=== PATIENT | female | born 1975 | race Caucasian/White ===

== ENCOUNTER 2016-02-21 13:07 | Emergency (ER) | payer OTHER ==
[~2016-02-21] VITALS: Ht 167.6 cm; Wt 54.2 kg
[~2016-02-21 13:07] MED LIST: ACET250T4 PO; AMPH5TAB16 PO; CHOL100043 PO; DICL25TA PO; FLUO10TA PO; GABA600T2 PO; MAGN27TA2 PO; MULT-1018 PO; ONDA8TAB7 PO; POTA99TA7 PO; PROP10TA8 PO
[2016-02-21 13:13] VITALS: BP 130/90; PULSE 66; RESP 16; O2SAT 100
--- NOTE | 2016-02-21 13:27 | ED.REPORT ---
HPI-General Illness Date of Service Feb 21, 2016 ED Provider: Hermann Sanabria MD Pt is a 40 year old female with a history of hyperthyroidism and hydrocephalus who presents to the ED with concerns for increased agitation, weight loss, nausea and vomiting that has been occurring for the past several weeks. Pt's significant other reports that pt has been "not herself", becoming extremely agitated and losing sleep. She reports that she has been being treated for her hyperthyroidism, and recently had her medication increased. Pt has an appointment with an senior administrative associate on 02/29/2016. After her medication was increased, her symptoms were alleviated for several months, but have recently been returning. Pt reports that she additionally has been diagnosed with endometriosis, and believes that her behavior changes are related to hormonal imbalance due to the timing of her behavioral changes. She has these episodes every month, roughly 10 days after her menstrual periods. Pt's girlfriend reports that her episodes have become so severe that she has broken furniture in outbreaks of rage, and injures herself. Pt reports no other complaints. Nursing Notes Stated Complaint: EVAL Chief Complaint: Neuro Symptoms/ Deficits Nursing Notes Reviewed: Yes Allergies: Coded Allergies: heparin (Unverified Allergy, Intermediate, Rash, 11/12/14) HIVES Scheduled Acetazolamide (Acetazolamide) 250 Mg Tablet 250 MG PO BID Amphetamine Sulfate (Evekeo) 5 Mg Tablet 5 MG PO TID Cholecalciferol (Vitamin D3) (Vitamin D) 1,000 Unit Tablet 0 PO DAILY Diclofenac ER (Diclofenac ER) 25 Mg Tablet 0 PO DAILY Fluoxetine (Fluoxetine) 10 Mg Tablet 10 MG PO TID Gabapentin (Gabapentin) 600 Mg Tablet 1,200 MG PO DAILY Multivitamin (Multi Vitamin Daily) 1 Each Tablet 1 EACH PO DAILY Potassium (Potassium) 99 Mg Tablet 99 MG PO DAILY Scheduled PRN Ondansetron ODT (Zofran ODT) 8 Mg Tablet 8 MG PO Q12 HR PRN PRN For Nausea Propranolol HCl (Propranolol HCl) 10 Mg Tablet 20 MG PO DAILY PRN PRN OOO Miscellaneous Medications Dextroamphetamine/Amphetamine (Amphetamine Mixed Salts) 20 Mg Tablet Divalproex (Divalproex) 250 Mg Tablet. Magnesium Amino Acid Chelate (Magnesium) 27 Mg Tablet 0 PO Methimazole (Methimazole) 10 Mg Tablet Zolpidem (Zolpidem) 10 Mg Tablet General Time Seen by MD: 13:24 Chief Complaint Multip medical complaints Hx Obtained From: Patient, Other family... Arrived By: Walk-in Sudden in Onset?: No Onset Occurred: Onset unknown Symptom Duration: Intermittent Location: : Head Severity: Current: Mild Severity: Maximum: Moderate Similar Sx Previous: Yes Past Medical History Past Medical History ADHD Hydrocephalus Anxiety Migraines Hyperthyroidism Endometriosis Reports: Depression Past Surgical History Hernia repair Reports: Cholecystectomy Smoking History Former Smoker Social History Drug Use: THC Ambulatory Status Independent Review of Systems Full Review of Systems Constitutional: Denies: Chills, Fever, Malaise, Weakness - generalized Respiratory: Denies: Non-productive cough, Shortness of breath, Wheezing Cardiovascular: Denies: Chest pain, Syncope GI: Reports: Nausea, Vomiting, Denies: Abdominal pain, Diarrhea Female: Denies: Dysuria, Flank pain, Urinary urgency Neurologic: Reports: Headache, Denies: Change LOC, Dizziness, Seizure, Syncope Psychiatric: Reports: Agitation, Anxiety, Change mental status, Depression Complete sys rev & neg: except as marked. Physical Exam Vital Signs Vital Signs Date Time Temp Pulse Resp B/P Pulse Ox O2 Delivery O2 Flow Rate FiO2 02/21/16 15:47 101 16 112/60 99 Room Air 02/21/16 13:13 36.9 66 16 130/90 100 Initial VS: Reviewed General/Constitutional: Well-developed, Well-nourished Head / Eyes: Atraumatic, Normocephalic, PERRL ENT: Mucous membranes moist, Conjunctiva normal, No scleral icterus Neck: Supple, Non-tender, Full range of motion Respiratory: Breath sounds normal, Clear to auscultation, No respiratory distress Cardiovascular: Regular rate & rhythm, Heart sounds normal, Intact distal pulses Abdomen / GI: Soft, Non-tender, No guarding, No rebound, No distention Skin: Warm, Dry, No cyanosis Neurologic: Alert, Oriented, Nonfocal Neurologic: Oriented X3, Speech NL, No motor deficits, No sensory deficits, Gait NL No pronator drift Able to balance with eyes closed Strength 5/5 in all 4 extremities Interpretation & Diagnostics Lab Results Interpretation Result Diagram: 02/21/16 1440 02/21/16 1440 Test 02/21/16 14:30 02/21/16 14:40 Hold Urine Received (Received) White Blood Count 6.0th/mm3 (3.8-10.1) Red Blood Count 4.42mil/mm3 (3.90-5.20) Hemoglobin 13.0g/dL (12.0-15.6) Hematocrit 39.5% (35.0-46.0) Mean Corpuscular Volume 89.4fL (81-100) Mean Corpuscular Hemoglobin 29.4pg (27.0-35.0) Mean Corpuscular Hemoglobin Concent 32.9% (32.0-37.0) Red Cell Distribution Width 14.0% (12.3-15.4) Platelet Count 339bil/L (150-400) Neutrophils (%) (Auto) 52.2% (40-74) Lymphocytes (%) (Auto) 37.9% (14-46) Monocytes (%) (Auto) 8.2% (4-12) Eosinophils (%) (Auto) 0.7% (0-5) Basophils (%) (Auto) 0.7% (0-3) Sodium Level 136mEq/L (134-144) Potassium Level 4.9mEq/L (3.5-5.2) Chloride Level 102mEq/L (97-108) Carbon Dioxide Level 23mmol/L (18-29) Blood Urea Nitrogen 7mg/dL (6-20) Creatinine 0.83mg/dL (0.57-1.00) Estimat Glomerular Filtration Rate 110mL/min (>59) Glucose Level 180mg/dL (60-99) Calcium Level 8.8mg/dL (8.5-10.1) Magnesium Level 2.0mg/dL (1.6-2.6) Total Bilirubin 0.8mg/dL (0.0-1.2) Aspartate Amino Transf (AST/SGOT) 77U/L (0-50) Alanine Aminotransferase (ALT/SGPT) 52U/L (0-32) Alkaline Phosphatase 92U/L (25-150) Total Protein 7.3g/dL (6.4-8.4) Albumin 3.6g/dL (3.4-5.0) Lipase 25U/L (13-60) Thyroid Stimulating Hormone (TSH) 0.006uIU/mL (0.450-4.500) Free Thyroxine 1.55ng/dL (0.82-1.77) CT Head Interpretation IMPRESSION: 1. Severe hydrocephalus stable compared to 11/12/14. 2. No intracranial hemorrhage. Dictated by: Mary Mai MD, PhD on 02/21/2016 at 15:40 Interpretation / Wet Read by: Interpret - Radiologist Re-Eval/Medical Decision Med Decision/Clinical Course Pt is a 40 year old female with a history of hyperthyroidism and hydrocephalus who presents to the ED with concerns for increased agitation, weight loss, nausea and vomiting that has been occurring for the past several weeks. The patient's presentation is quite bizarre and seems to involve complaints related to the patient's underlying hyperthyroidism which is currently being treated with methimazole, baseline behavioral disturbances, ongoing use of amphetamine medications despite recommendations that these medications be continued. Upon arrival the patient is afebrile and hemodynamically stable. She has no signs of head trauma and no lateralizing neurologic deficits. She has normal steady gait and no exam findings suggestive of symptomatic manifestations of her underlying hydrocephalus. I obtained a CT scan of the patient's head which demonstrated severe hydrocephalus that was stable from prior. I obtained the patient's previous extensive records from [facility] where she was initially treated with her hydrocephalus and referred the decision was made not to place a long-term indwelling [employer] shunt. From what I can gather the patient's hydrocephalus has been extensively evaluated and is felt not to require any further intervention. Based upon the CT scan today the patient's hydrocephalus is stable. Laboratory studies were notable as below: U-Tox positive for: THC, TCA and amphetamines CBC and Chemistry are unremarkable TSH is 0.006 Free T4 1.55 At this time the cause of the patient's behavioral disturbances remains unclear. She has no resting tremor or tachycardia convincing that she has clinically hyperthyroid though some of her symptoms are suggestive thereof. She has been prescribed a beta bri but has not been taking it. I certainly feel that the patient use of amphetamines may be a contributor and I have recommended that she discontinue this. The patient was seen and evaluated by emergency department pediatric social worker and it is felt that there is a large behavioral psychiatric component to her presentation today. She is without any suicidal ideation and they do not feel that she warrants admission for psychiatric perspective. The patient should continue her methimazole as she is clearly hyperthyroid though her 3 T4 is within normal limits. The patient has an upcoming appointment on the of this month with endocrinology and I recommended that she keep this appointment. At this time I feel that she is appropriate for discharge home. Arrangements were made for her to get close follow-up with her counselor. The patient and her significant other were provided with follow-up and return precautions and she was discharged in stable condition. Source of Hx: Old records Time of Eval: 16:26 Re-Evaluation/Progress Note: Pt is rechecked and informed of her labs and imaging results and the plan to discharge her at this time. She understands and agrees, all questions are addressed. Consultation : Referral / Consult Name: Daniel Araujo MD Consulted With: Hospitalist Call Returned at: 16:12 Radio Interference Supervisor: Agrees with eval, Agrees with plan Counseled Regarding: Diagnosis, Lab results, When/why to return to ED Discharge & Departure Primary Impression: Hydrocephalus Additional Impressions: Anxiety Hyperthyroidism Agitation Amphetamine abuse Behavioral disorder Disposition: Home Discharge Condition All VS Reviewed: Yes Condition: Stable Additional Instructions: Thank you for seeking care at emergency room. It is difficult for us to make definitive diagnoses in the ED but we believe that you are experiencing symptoms related to multiple factors including her hyperthyroidism as well as use of amphetamine type medications. Our primary goal today in the ED was to evaluate you for any life-threatening conditions. Your evaluation was reassuring. Please continue to take the methimazole as prescribed. We recommend discontinuing any amphetamine-containing medications. We recommend cutting back on alcohol as well. Please follow up with the resources as provided by our pediatric social worker. They will help you to get follow-up with your counselor. Please follow up with the senior administrative associate on the ninth of this month as arranged. You should return to the ED immediately if you develop worsening symptoms, thoughts of harming yourself/others, fevers, vomiting, cough, shortness of breath, chest pain, lightheadedness, weakness or any other concerning signs or symptoms. Thank you for letting us partake in your care today. Referrals: SANDI AGUILAR PA-C (PCP) Sammy Frazier MD Scribe Attestation Portions of this note were transcribed by Nicole Olmos. I, Dr. Sanabria personally performed the history, physical exam and medical decision-making; I reviewed and confirmed the accuracy of the information in the transcribed note. Signed by: Kristin Roberts, 02/21/2016 16:35 copies to: SANDI AGUILAR PA-C; Sammy Frazier MD, Beck O MD Feb 21, 2016 13:27 ALLISON OLMOS Feb 21, 2016 14:20
[2016-02-21] MEDS ORDERED: ZOLP10TA5 (14:20)
[2016-02-21] MEDS ORDERED: DEXT20TA8 (14:20)
[2016-02-21] MEDS ORDERED: METH10TA4 (14:20)
[2016-02-21] MEDS ORDERED: DIVA250T4 (14:20)
[2016-02-21 14:52] LABS: BASOPHILS % (AUTO) 0.7 % (0-3); EOSINOPHILS % (AUTO) 0.7 % (0-5); MONOCYTES % (AUTO) 8.2 % (4-12); Mean Corpuscular Hemoglobin 29.4 pg (27.0-35.0); Mean Corpuscular Volume 89.4 fL (81-100); NEUTROPHILS % (AUTO) 52.2 % (40-74); Platelet Count 339 bil/L (150-400)
--- NOTE | 2016-02-21 15:41 | DRSVH ---
PROCEDURE: CT BRAIN WITHOUT CONTRAST ([id number]) INDICATIONS: Acute mental status changes. TECHNIQUE: Noncontrast 4.5 mm thick angled axial sections acquired from the foramen magnum to the vertex, with c oronal reformats. COMPARISON: Outside Film, MR, BRAIN W/O CONTRAST, 02/18/2014, 14:39. Outside Film, CT, BRAIN W/O CO NTRAST, 02/18/2014, 14:08. [facility], CT, CT BRAIN WO CON, 11/12/2014, 16:42. FINDINGS: Image quality: Excellent. CSF spaces: Basal cisterns are patent. No extra-axial fluid collections. Severe ventriculomegaly is stable compared to prior examination obtained 11/12/2014. Brain: No midline shift. No intracranial masses or hemorrhage. Espinosa-white matter interface is norm al. Skull and face: Calvarium and visualized facial bones are intact, without suspicious lesions. Sinuses: Visualized sinuses and mastoids are clear. IMPRESSION: 1. Severe hydrocephalus stable compared to 11/12/14. 2. No intracranial hemorrhage. Dictated by: Mary Mai MD, PhD on 02/21/2016 at 15:40 Approved by: Mary Mai MD, PhD on 02/21/2016 at 15:40
[2016-02-21 15:47] VITALS: BP 112/60; PULSE 101; RESP 16; O2SAT 99
[2016-02-21 17:06] VITALS: BP 112/60; PULSE 96; RESP 16; O2SAT 99
[2016-02-23 06:08] LABS: Free Thyroxine Index 2.5 (1.2-4.9)
[2016-07-22] MEDS ORDERED: HYOS0.1216 PO (12:06)
== END 2016-02-21 17:08 | disposition home or self-care (01) ==
LOC: SED 13:07 → UNDOADMOB 16:53 → OSC 16:53
DX: G91.9 Hydrocephalus, unspecified (principal); F41.9 Anxiety disorder, unspecified; E05.90 Thyrotoxicosis, unspecified without thyrotoxic crisis or storm; R45.1 Restlessness and agitation; F15.10 Other stimulant abuse, uncomplicated; F91.9 Conduct disorder, unspecified; R63.4 Abnormal weight loss; R11.2 Nausea with vomiting, unspecified; Z87.891 Personal history of nicotine dependence; Z88.8 Allergy status to other drugs, medicaments and biological substances

== ENCOUNTER 2016-06-02 18:33 | Emergency (ER) | payer OTHER ==
[~2016-06-02] VITALS: Ht 167.6 cm; Wt 56.8 kg
[~2016-06-02 18:33] MED LIST changes: +DEXT20TA8; +DIVA250T4; +METH10TA4; +ZOLP10TA5
[2016-06-02 18:45] VITALS: BP 113/75; PULSE 78; RESP 18; O2SAT 100
[2016-06-02] MEDS ORDERED: 0.9% Sodium Chloride 1,000 ML IV ONE ×2 (20:27→21:37)
--- NOTE | 2016-06-02 20:28 | ED.REPORT ---
HPI-Abd Pain F 40 and Over Date of Service Jun 02, 2016 ED Provider: Hermann Sanabria MD Patient is a 41 year old female who presents to the ED complaining of epigastric abdominal pain onset today while doing yard work. Associated symptoms include back pain and vomiting. She denies fever, chills, or any other symptoms. She describes the pain as similar to when she had a hernia or splenic infarct. She took Maalox prior to arrival because she thought her pain was due to indigestion. Nursing Notes Stated Complaint: SEVER ABDOMINAL PAIN Chief Complaint: Female Abdominal Pain Nursing Notes Reviewed: Yes Allergies: Coded Allergies: heparin (Unverified Allergy, Intermediate, Rash, 11/12/14) HIVES Scheduled Acetazolamide (Acetazolamide) 250 Mg Tablet 250 MG PO BID Amphetamine Sulfate (Evekeo) 5 Mg Tablet 5 MG PO TID Cholecalciferol (Vitamin D3) (Vitamin D) 1,000 Unit Tablet 0 PO DAILY Diclofenac ER (Diclofenac ER) 25 Mg Tablet 0 PO DAILY Fluoxetine (Fluoxetine) 10 Mg Tablet 10 MG PO TID Gabapentin (Gabapentin) 600 Mg Tablet 1,200 MG PO DAILY Multivitamin (Multi Vitamin Daily) 1 Each Tablet 1 EACH PO DAILY Omeprazole (Omeprazole) 20 Mg Tablet. 20 MG PO DAILY Potassium (Potassium) 99 Mg Tablet 99 MG PO DAILY Scheduled PRN Ondansetron ODT (Zofran ODT) 8 Mg Tablet 8 MG PO Q12 HR PRN PRN For Nausea Ondansetron ODT (Zofran ODT) 4 Mg Tablet 4 MG PO Q4H PRN PRN For Nausea Propranolol HCl (Propranolol HCl) 10 Mg Tablet 20 MG PO DAILY PRN PRN OOO Miscellaneous Medications Dextroamphetamine/Amphetamine (Amphetamine Mixed Salts) 20 Mg Tablet Divalproex (Divalproex) 250 Mg Tablet. Magnesium Amino Acid Chelate (Magnesium) 27 Mg Tablet 0 PO Methimazole (Methimazole) 10 Mg Tablet Zolpidem (Zolpidem) 10 Mg Tablet General Time Seen by MD: 20:24 Chief Complaint Abdominal pain Hx Obtained From: Patient Sudden in Onset?: Yes Risk Factors )( AAA Risk Stratification No Hypertension, No Smoking Risk factors reviewed Past Medical History Past Medical History ADHD Hydrocephalus Anxiety Migraines Hyperthyroidism Endometriosis Reports: Depression Past Surgical History Hernia repair duodenal switch SKin graft on head Reports: Cholecystectomy Smoking History Former Smoker Social History Drug Use: THC Ambulatory Status Independent Review of Systems Constitutional: Denies: Chills, Fever GI: Reports: Abdominal pain, Vomiting Musculoskeletal: Reports: Back pain Complete sys rev & neg: except as marked. Physical Exam Vital Signs Vital Signs (First) Date Time Temp Pulse Resp B/P Pulse Ox O2 Delivery O2 Flow Rate FiO2 06/02/16 18:45 36.6 78 18 113/75 100 Room Air Initial VS: Reviewed Head / Eyes: Atraumatic, Normocephalic Skin: Warm, Dry Neurologic: Alert, Oriented, Nonfocal Psychiatric: Mood/affect normal, Behavior normal, Normal thought content General/Constitutional: Awake, Alert, Well developed Respiratory / Chest: Breath sounds NL, Breath sounds = bilat, No respiratory distress Cardiovascular: Heart rate NL, Regular rhythm, Heart sounds NL, No gallop, No murmurs, No rubs Abdomen: Soft, No guarding, No rebound, BS normoactive Tenderness/Guarding/Rebound: Positive: Tender diffuse (Mild ) Well healed surgical scar Back: Inspection NL Mouth: Positive: Mucous membranes dry Interpretation & Diagnostics Lab Results Interpretation Result Diagram: 06/02/16201906/02/16 2020 Test 06/02/16 20:20 06/02/16 20:27 06/02/16 21:05 White Blood Count 8.3th/mm3 (3.8-10.1) Red Blood Count 3.96mil/mm3 (3.90-5.20) Hemoglobin 12.0g/dL (12.0-15.6) Hematocrit 36.1% (35.0-46.0) Mean Corpuscular Volume 91.2fL (81-100) Mean Corpuscular Hemoglobin 30.3pg (27.0-35.0) Mean Corpuscular Hemoglobin Concent 33.2% (32.0-37.0) Red Cell Distribution Width 12.7% (12.3-15.4) Platelet Count 369bil/L (150-400) Neutrophils (%) (Auto) 68.6% (40-74) Lymphocytes (%) (Auto) 22.7% (14-46) Monocytes (%) (Auto) 7.9% (4-12) Eosinophils (%) (Auto) 0% (0-5) Basophils (%) (Auto) 0.4% (0-3) Sodium Level 138mEq/L (134-144) Potassium Level 4.3mEq/L (3.5-5.2) Chloride Level 103mEq/L (97-108) Carbon Dioxide Level 18mmol/L (18-29) Blood Urea Nitrogen 15mg/dL (6-24) Creatinine 0.89mg/dL (0.57-1.00) Estimat Glomerular Filtration Rate 101mL/min (>59) Glucose Level 104mg/dL (60-99) Calcium Level 9.3mg/dL (8.5-10.1) Magnesium Level 2.4mg/dL (1.6-2.6) Total Bilirubin 0.4mg/dL (0.0-1.2) Aspartate Amino Transf (AST/SGOT) 38U/L (0-50) Alanine Aminotransferase (ALT/SGPT) 23U/L (0-32) Alkaline Phosphatase 117U/L (25-150) Total Protein 7.3g/dL (6.4-8.4) Albumin 3.8g/dL (3.4-5.0) Lipase 22U/L (13-60) Human Chorionic Gonadotropin, Qual 0.500 (Negative) Urine Color Yellow (YELLOW) Urine Appearance Cloudy (CLEAR,HAZY) Urine pH 8.5 (5.0-8.0) Urine Specific Jackson 1.015 (1.003-1.035) Urine Protein Tracemg/dL (NEG,TRACE) Urine Glucose (UA) Negativemg/dL (NEGATIVE) Urine Ketones 15mg/dL (NEGATIVE) Urine Occult Blood Negative (NEGATIVE) Urine Nitrite Negative (NEGATIVE) Urine Bilirubin Negative (NEGATIVE) Urine Urobilinogen Normalmg/dL (NORMAL) Urine Leukocyte Esterase Negative (NEGATIVE) Urine RBC 0-2/hpf (0-2) Urine WBC 0-5/hpf (0-5) Urine Epithelial Cells Many/hpf (NONE-MOD) Urine Crystals Amorphous phosphates Urine Bacteria None/hpf (NONE-FEW) Urine Hyaline Casts None/lpf (NONE) Urine Granular Casts None seen (NONE SEEN) Urine Waxy Casts None seen (NONE SEEN) Urine Red Blood Cell Casts None seen (NONE SEEN) Urine White Blood Cell Casts None seen (NONE SEEN) Urine Mucus None seen (None Seen) Urine Trichomonas None seen (NONE SEEN) Urine Yeast None (NONE SEEN) Urine Culture Reflexed Not indicated Hold Purple Top Tube Received (Received) Hold Blue Top Tube Received (Received) Hold [place] Top Tube Received (Received) Hold [place] Top Tube Received (Received) Lab Results Interpretation: CBC unremarkable CMP unremarkable Urine unconvincing for UTI lipase nL limit CT Abd / Pelvis Interpretation IMPRESSION: Status post cholecystectomy and the distal common bile duct appears dilated although this may be in part due to changes related to prior cholecystectomy. Please correlate clinically and with LFTs. Elsewhere, no acute abnormality. Appendix not definitely identified. No suspicious right lower quadrant changes. Hepatic steatosis. Small hiatal hernia. Dictated by: Sg Christie M.D. on 06/02/2016 at 21:57 Approved by: Sg Christie M.D. on 06/02/2016 at 22:04 Study type: Abdominal CT IV contrast Interpretation / Wet Read by: Interpret - Radiologist Re-Eval/Medical Decision Med Decision/Clinical Course Patient is a 41 year old female who presents to the ED complaining of epigastric abdominal pain onset today while doing yard work. Associated symptoms include back pain and vomiting. She denies fever, chills, or any other symptoms. She describes the pain as similar to when she had a hernia or splenic infarct. She took Maalox prior to arrival because she thought her pain was due to indigestion. Here in the emergency department the patient is afebrile, hemodynamically stable and in no apparent distress. Her abdominal examination is relatively benign though given her extensive surgical history I opted to obtain a CT scan as below due to concern for possible anastomotic leak or small bowel obstruction. CT abdomen and pelvis: Status post cholecystectomy and the distal common bile duct appears dilated although this may be in part due to changes related to prior cholecystectomy. Please correlate clinically and with LFTs. Elsewhere, no acute abnormality. Appendix not definitely identified. No suspicious right lower quadrant changes. Hepatic steatosis. Laboratory studies were notable as below: CBC unremarkable CMP unremarkable Urine unconvincing for UTI lipase nL limit negative Here in the emergency department the patient was treated with a GI cocktail and reported complete symptom resolution. She was additionally treated with IV fluids, Zofran for nausea and hydromorphone for pain. Serial abdominal examinations remained benign without any evidence suggestive of an acute surgical intra-abdominal process. She is able to pass flatus and tolerating PO. No evidence at this time of acute surgical process or bowel obstruction. Patient's been prescribed a proton pump inhibitor and advised to take daily. She will follow up closely with her primary care physician. Prior to discharge follow-up and return precautions were reviewed in detail with the patient who verbalized understanding and agreement with the plan. The patient was discharged in stable condition. Re-Evaluation/Progress : Time of Eval: 22:20 )( Re-Eval Abdomen: Soft Re-Evaluation/Progress Note: Discussed imaging results and plan for discharge. Patient understands and agrees with plan. All questions addressed at this time. Counseled Regarding: Diagnosis, Lab results, Need for follow-up, When/why to return to ED Discharge & Departure Primary Impression: Abdominal Pain Generalized Additional Impressions: Gastritis Gastritis type: unspecified gastritis Chronicity: acute Gastritis bleeding : without bleeding Qualified Code: K29.00 - Acute gastritis without bleeding History of gastric bypass Nausea and vomiting Vomiting type: unspecified Dehydration Disposition: Home Discharge Condition All VS Reviewed: Yes Condition: Improved Additional Instructions: Thank you for seeking care at the emergency room. Our primary goal today in the ED was to evaluate you for any life-threatening conditions. Your evaluation was reassuring. I did not find any concerning causes of your abdominal pain today. You should follow-up with your primary doctor in the next week. Review of plan prescribed Zofran for nausea and omeprazole for acid reflux. You should return to the ED immediately if you develop recurrent symptoms, fevers, vomiting, cough, shortness of breath, chest pain, lightheadedness, weakness or any other concerning signs or symptoms. Thank you for letting us partake in your care today. Referrals: NOPCP (PCP) Scribe Attestation Portions of this note were transcribed by Raman Baeza. I, Dr. Sanabria personally performed the history, physical exam and medical decision-making; I reviewed and confirmed the accuracy of the information in the transcribed note. Signed by: Raman Baeza 06/02/16, 2242 Hermann Sanabria MD Jun 02, 2016 20:28 RAMAN BAEZA Jun 02, 2016 21:39
[2016-06-02] MEDS ORDERED: Ondansetron 2 mg/mL 2 mL Inj IVPUSH ONE (20:30)
[2016-06-02] MEDS ORDERED: HYDROmorphone 0.5 mg/0.5 mL iSecure Syringe IVPUSH PRN ×2 (20:30→21:40)
[2016-06-02 20:49] LABS: APPEARANCE,URINE CLOUDY (CLEAR,HAZY); COLOR,URINE YELLOW (YELLOW); OCCULT BLOOD,URINE NEGATIVE (NEGATIVE); PH,URINE 8.5 (5.0-8.0); UROBILINOGEN,URINE NORMAL (NORMAL)
[2016-06-02 21:12] LABS: BASOPHILS % (AUTO) 0.4 % (0-3); EOSINOPHILS % (AUTO) 0 % (0-5); MONOCYTES % (AUTO) 7.9 % (4-12); Mean Corpuscular Hemoglobin 30.3 pg (27.0-35.0); Mean Corpuscular Volume 91.2 fL (81-100); NEUTROPHILS % (AUTO) 68.6 % (40-74); Platelet Count 369 bil/L (150-400)
[2016-06-02 21:25] LABS: Magnesium 2.4 mg/dL (1.6-2.6)
[2016-06-02] MEDS ORDERED: LidocaineVisc 2%:Antacid 1:1 10 mL Syringe PO ONE (21:40)
--- NOTE | 2016-06-02 22:06 | DRSVH ---
PROCEDURE: CT ABDOMEN AND PELVIS WITH CONTRAST ([id number]) INDICATIONS: epigastric pain, h/o duodenal surgery TECHNIQUE: After the administration of intravenous contrast, 5 mm thick sections acquired from the diaphragm to the symphysis. 5 mm coronal and sagittal reformats were acquired. For radiation dose reduction, the following was used: automated exposure control, adjustment of mA and/or kV according to patient siz e. COMPARISON: None. FINDINGS: Image quality: Excellent. ABDOMEN: Lung bases: Lung bases are clear. Heart size is normal. Solid organs: The hepatic steatosis otherwise liver and spleen are normal in size and enhancement. G allbladder surgically absent. Extrahepatic bile ducts are dilated, and the distal common bile duct me asures approximately 1.3 cm. No visualized etiology.. Pancreas enhances normally. No adrenal nodule s. Kidneys demonstrate normal size and enhancement, without hydronephrosis. Peritoneum and bowel: Postsurgical changes involving the distal stomach however the exact anatomy is difficult to delineate. Recommend correlation to surgical history. There is a small hiatal hernia Vahe wel loops demonstrate normal wall thickness and caliber. No free fluid or air. Appendix not well-se en. Rectum grossly unremarkable Nodes and vessels: No retroperitoneal or mesenteric adenopathy by size criteria. Aorta and inferior vena cava are normal in size. Miscellaneous: No ventral hernias. PELVIS: Genitourinary: Bladder wall thickness is normal. Miscellaneous: No inguinal hernias or adenopathy. Bones: No suspicious bony lesions. No vertebral body compression fractures. IMPRESSION: Status post cholecystectomy and the distal common bile duct appears dilated although this may be in p art due to changes related to prior cholecystectomy. Please correlate clinically and with LFTs. Elsewhere, no acute abnormality. Appendix not definitely identified. No suspicious right lower quadra nt changes. Hepatic steatosis. Small hiatal hernia. Dictated by: Sg Christie M.D. on 06/02/2016 at 21:57 Approved by: Sg Christie M.D. on 06/02/2016 at 22:04
[2016-06-02] MEDS ORDERED: ONDA4TAB9 PO (22:17)
[2016-06-02] MEDS ORDERED: OMEP20TA86 PO (22:17)
[2016-06-02 22:40] VITALS: BP 107/66; PULSE 98; RESP 14; O2SAT 99
[2016-07-22] MEDS ORDERED: HYOS0.1216 PO (12:06)
== END 2016-06-02 22:42 | disposition home or self-care (01) ==
LOC: SED 18:33
DX: R10.84 Generalized abdominal pain (principal); K29.00 Acute gastritis without bleeding; E86.0 Dehydration; M54.9 Dorsalgia, unspecified; E05.90 Thyrotoxicosis, unspecified without thyrotoxic crisis or storm; F90.9 Attention-deficit hyperactivity disorder, unspecified type; Z90.49 Acquired absence of other specified parts of digestive tract; Z98.84 Bariatric surgery status; Z98.890 Other specified postprocedural states; Z87.891 Personal history of nicotine dependence
CPT/HCPCS: 74177; 80053; 81000; 81025; 83690; 83735; 84703; 85025; 96361; 96374; 96375; 99285; J1170; J2405; J7030; Q9967

== ENCOUNTER 2016-06-26 15:23 | Emergency (ER) | payer OTHER ==
[~2016-06-26 15:23] MED LIST changes: +OMEP20TA86 PO; +ONDA4TAB9 PO
[2016-07-22] MEDS ORDERED: HYOS0.1216 PO (12:06)
== END 2016-06-26 15:40 | disposition left against medical advice (07) ==
LOC: SED 15:23
DX: Z53.21 Procedure and treatment not carried out due to patient leaving prior to being seen by health care provider (principal)

== ENCOUNTER 2016-06-27 19:57 | Emergency (ER) | payer OTHER ==
[~2016-06-27] VITALS: Ht 167.6 cm; Wt 57.0 kg
[2016-06-27 20:40] VITALS: BP 108/63; PULSE 81; RESP 16; O2SAT 100
[2016-07-22] MEDS ORDERED: HYOS0.1216 PO (12:06)
== END 2016-06-27 20:45 | disposition left against medical advice (07) ==
LOC: SED 19:57
DX: R10.9 Unspecified abdominal pain (principal); Z53.21 Procedure and treatment not carried out due to patient leaving prior to being seen by health care provider

== ENCOUNTER 2016-07-22 07:04 | Emergency (ER) | payer MEDICAID, OTHER ==
[~2016-07-22] VITALS: Ht 167.6 cm; Wt 56.8 kg
[2016-07-22 07:06] VITALS: BP 157/89; PULSE 89; RESP 26; O2SAT 99
[2016-07-22] MEDS ORDERED: Pantoprazole 4 mg/mL 10 mL Inj IVPUSH ONE (07:30)
[2016-07-22] MEDS ORDERED: Ondansetron 2 mg/mL 2 mL Inj IVPUSH PRN (07:30)
--- NOTE | 2016-07-22 07:39 | ED.REPORT ---
HPI-Abd Pain F 40 and Over Date of Service Jul 22, 2016 ED Provider: Oscar Fowler DO The patient is a 41 year old female with history of hyperthyroidism, strangulated hernia s/p repair, hydrocephalus, and bariatric surgery who presents to the ED complaining of epigastric abdominal pain onset 0600am today after having breakfast. She has had [id number] episodes of abdominal pain in the last 2-3 months. The pain is at the periumbilical area, but it feels like it is in her stomach. It is sharp, like "I swallowed a razor" and radiates to bilateral flank. The pain can be very severe at times, but usually resolves spontaneously after 1-2 hours. Patient admits to back pain and nausea, but no vomiting, dysuria, urinary complaint, CP, SOB, fever, or chills. However, she feels like vomiting can make the pain better so she has been trying to induce emesis. She also reports a small loose BM this morning, but denies diarrhea, recent travel, headache, or any other complaint. She was in the ER on 06/02/16 for the same symptoms and had an abdominal CT that was normal except for a small hiatal hernia and hepatic steatosis. She was sent home with the diagnosis of gastritis. Since then, the abdominal pain has waxed and waned. She has been to the ER a couple times last month, but left while waiting in the triage as her pain subsided. No PCP. Nursing Notes Stated Complaint: ABDOMINAL PAIN Chief Complaint: Female Abdominal Pain Nursing Notes Reviewed: Yes Allergies: Coded Allergies: heparin (Unverified Allergy, Intermediate, Rash, 11/12/14) HIVES Scheduled Acetazolamide (Acetazolamide) 250 Mg Tablet 250 MG PO BID Amphetamine Sulfate (Evekeo) 5 Mg Tablet 5 MG PO TID Cholecalciferol (Vitamin D3) (Vitamin D) 1,000 Unit Tablet 0 PO DAILY Diclofenac ER (Diclofenac ER) 25 Mg Tablet 0 PO DAILY Fluoxetine (Fluoxetine) 10 Mg Tablet 10 MG PO TID Gabapentin (Gabapentin) 600 Mg Tablet 1,200 MG PO DAILY Multivitamin (Multi Vitamin Daily) 1 Each Tablet 1 EACH PO DAILY Omeprazole (Omeprazole) 20 Mg Tablet.dr 20 MG PO DAILY Potassium (Potassium) 99 Mg Tablet 99 MG PO DAILY Scheduled PRN Hyoscyamine (Hyoscyamine) 0.125 Mg Tablet 0.125 MG PO Q4H PRN PRN For GI Cramps Ondansetron ODT (Zofran ODT) 8 Mg Tablet 8 MG PO Q12 HR PRN PRN For Nausea Ondansetron ODT (Zofran ODT) 4 Mg Tablet 4 MG PO Q4H PRN PRN For Nausea Propranolol HCl (Propranolol HCl) 10 Mg Tablet 20 MG PO DAILY PRN PRN OOO Tramadol (Tramadol) 50 Mg Tablet 50 MG PO Q4H PRN PRN For Pain Miscellaneous Medications Dextroamphetamine/Amphetamine (Amphetamine Mixed Salts) 20 Mg Tablet Divalproex (Divalproex) 250 Mg Tablet. Magnesium Amino Acid Chelate (Magnesium) 27 Mg Tablet 0 PO Methimazole (Methimazole) 10 Mg Tablet Zolpidem (Zolpidem) 10 Mg Tablet General Time Seen by MD: 07:11 Chief Complaint Abdominal pain Hx Obtained From: Patient Arrived By: Walk-in Sudden in Onset?: Yes Onset Occurred: More than a week ago... (2 months) Symptom Duration: 1 - 4 hours Progression since Onset: Waxes and wanes Location: : Periumbilical Quality: Same as prior, Sharp Radiation: : Flank bilateral Severity: Current: Severe Severity: Maximum: Severe Associated with: Reports: Back pain, Nausea, Denies: Chest pain, Chills, Constipation, Dysuria, Fever, Hematuria, Shortness of breath, Urinary frequency, Urinary retention, Urinary tract symptoms, Vomiting Pertinent Negative: Pt denies other symptoms Exacerbated by: Vomiting Pertinent Negative: Relieved by nothing Recent Healthcare: Recent hospitalization Similar Sx Previous: Yes Risk Factors )( AAA Risk Stratification Smoking Risk factors reviewed Ectopic Risk Stratification No risk factors Past Medical History Past Medical History ADHD Hydrocephalus Anxiety Migraines Hyperthyroidism Endometriosis Reports: Depression Past Surgical History Hernia repair duodenal switch SKin graft on head Reports: Cholecystectomy Smoking History Current Every Day Smoker (1/2 ppd) Social History Alcohol Use: Denies alcohol use (patient denies alcohol use, but record shows that she has a history of alcoholism in the past) Drug Use: THC Ambulatory Status Independent Review of Systems Basic Review of Systems Eyes: Vision NL, No discharge ENT: Hearing NL, No pain, No nasal congestion, No pharyngeal pain Constitutional: Denies: Chills, Fatigue, Fever Respiratory: Denies: Dyspnea on exertion, Non-productive cough, Pleuritic pain , Shortness of breath Cardiovascular: Denies: Chest pain, Dyspnea on exertion, Edema, Palpitations GI: Reports: Abdominal pain, Nausea, Denies: Constipation, Diarrhea, Vomiting Female: Reports: Flank pain, Denies: Dysuria, Urinary frequency, Urinary urgency, Urination decreased Musculoskeletal: Reports: Back pain, Denies: Joint pain Complete sys rev & neg: except as marked. Physical Exam Vital Signs Vital Signs (First) Date Time Temp Pulse Resp B/P Pulse Ox O2 Delivery O2 Flow Rate FiO2 07/22/16 07:06 36.0 89 26 157/89 99 Room Air Initial VS: Reviewed Head / Eyes: Atraumatic, Normocephalic, PERRL ENT: Mucous membranes moist, Conjunctiva normal, No scleral icterus General/Constitutional: Awake, Alert, Well developed, Well hydrated Distress / Hydration: Positive: Distress severe (due to pain, moaning in pain, lying in position) Behavior: Positive: Anxious, Restless, Tearful, Uncooperative Appearance / Presentation: Positive: In pain Respiratory / Chest: Breath sounds NL, Breath sounds = bilat, No respiratory distress, No rales, No rhonchi, No wheezing Cardiovascular: Heart rate NL, Regular rhythm, Heart sounds NL, No murmurs, Cap refill not delayed Abdomen: Atraumatic, Soft, No rebound, BS normoactive, No distention, No palpable mass Tenderness/Guarding/Rebound: Positive: Guarding voluntary, Tender diffuse Pain is out of portion to exam. Back: Atraumatic, Inspection NL Flank / Spine / Paraspinal: Positive: Flank tender bilateral Skin: Atraumatic, Color NL, No rash, Warm, Dry Neck: Atraumatic, Supple, No swelling, Non-tender Ankle / Foot: Atraumatic, Inspection NL, No swelling, No erythema Psychiatric: No hallucinations Abnormal Mood/Affect: Positive: Anxious, Irritable Interpretation & Diagnostics Lab Results Interpretation Result Diagram: 07/22/16 0800 07/22/16 0800 Test 07/22/16 08:00 07/22/16 08:20 07/22/16 09:07 07/22/16 11:20 White Blood Count 5.6th/mm3 (3.8-10.1) Red Blood Count 3.45mil/mm3 (3.90-5.20) Hemoglobin 10.3g/dL (12.0-15.6) Hematocrit 32.5% (35.0-46.0) Mean Corpuscular Volume 94.2fL (81-100) Mean Corpuscular Hemoglobin 29.9pg (27.0-35.0) Mean Corpuscular Hemoglobin Concent 31.7% (32.0-37.0) Red Cell Distribution Width 13.7% (12.3-15.4) Platelet Count 301bil/L (150-400) Neutrophils (%) (Auto) 60.0% (40-74) Lymphocytes (%) (Auto) 29.6% (14-46) Monocytes (%) (Auto) 7.0% (4-12) Eosinophils (%) (Auto) 2.3% (0-5) Basophils (%) (Auto) 0.7% (0-3) Sodium Level 139mEq/L (134-144) Potassium Level 3.7mEq/L (3.5-5.2) Chloride Level 103mEq/L (97-108) Carbon Dioxide Level 20mmol/L (18-29) Blood Urea Nitrogen 11mg/dL (6-24) Creatinine 0.68mg/dL (0.57-1.00) Estimat Glomerular Filtration Rate 137mL/min (>59) Glucose Level 94mg/dL (60-99) Calcium Level 8.8mg/dL (8.5-10.1) Total Bilirubin 0.3mg/dL (0.0-1.2) Aspartate Amino Transf (AST/SGOT) 51U/L (0-50) Alanine Aminotransferase (ALT/SGPT) 28U/L (0-32) Alkaline Phosphatase 100U/L (25-150) Total Protein 6.5g/dL (6.4-8.4) Albumin 3.7g/dL (3.4-5.0) Lipase 33U/L (13-60) Thyroid Stimulating Hormone (TSH) 1.530uIU/mL (0.450-4.500) Free Thyroxine 0.81ng/dL (0.82-1.77) HCG Beta Subunit < 0.500mIU/mL Hold Purple Top Tube Received (Received) Hold Red Top Tube Received (Received) Hold [place] Top Tube Received (Received) Hold Urine Received (Received) Lactic Acid Level 1.1mmol/L (0.4-2.0) Lab Results Interpretation: Low H/H indicates Macrocytic anemia. Elevated Lactic acid (3.2) that improved with IV fluid (1). The rest of the labs were not clinically significant. CT Abd / Pelvis Interpretation IMPRESSION: 1.4 cm common duct caliber with normal tapering of the common duct to the ampulla. Prior cholecystectomy. There is a moderate degree of colonic obstipation bilaterally, as a potential source of abdominal pain. No free fluid is found, no diverticulitis is identified. Dictated by: Cam Dominguez M.D. on 07/22/2016 at 10:21 Approved by: Cam Dominguez M.D. on 07/22/2016 at 10:25 Re-Eval/Medical Decision Med Decision/Clinical Course Patient is a 41 year old female who presents to the ED complaining of nonspecific abdominal pain onset prior to arrival today. Associated symptoms include bilateral flank pain and and nausea. She denies fever, chills, or any other symptoms. She has had [id number] episodes of abdominal pain that usually self-limited in the last 2 months. Here in the emergency department the patient is and in apparent pain distress and is somewhat a vague historian, but she is otherwise afebrile, hemodynamically stable . Her abdominal examination is relatively benign though given her extensive surgical history and pain complaint, we ordered an abd/ pevis CT to rule out appendicitis vs. cholangitis vs. small bowel obstruction vs. diverticulitis vs. ovarian torsion CT abdomen and pelvis: IMPRESSION: 1.4 cm common duct caliber with normal tapering of the common duct to the ampulla. Prior cholecystectomy. There is a moderate degree of colonic obstipation bilaterally, as a potential source of abdominal pain. No free fluid is found, no diverticulitis is identified. Laboratory studies were notable as below: Low H/H indicates Macrocytic anemia. Elevated Lactic acid (3.2) that improved with IV fluid (1). Lipase normal. TSH/Free T4 normal The rest of the labs were not clinically significant. Here in the emergency department the patient was treated with a total of 1.5mg of Dilaudid IV. She was additionally treated with IV fluids and Zofran for nausea. Serial abdominal examinations remained benign without any evidence suggestive of an acute surgical intra-abdominal process. Although her CT showed a moderate degree of colonic obstipation, she is able to pass flatus and had a BM this morning. No evidence at this time of acute surgical process or bowel obstruction. In light of her dilated common duct, Dr. Parsons of general surgery was consulted and personally reviewed the CT scan. He stated that this is likely a normal finding post-cholescytectomy and there is no indication for surgery. 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 However, patient had the surgery in [place] sometime between [id number] and has no one to follow up. I recommend her to establish care with a PCP and possibly get a referral to a surgeon who is willing to see her. Patient would like to see the surgeon who did her hernia repair at [place]. Patient's been prescribed Tramadol for pain control. Because she also requested a antispasmodic medication (which she has used in the past and it seemed to help but she cant remember the name), I sent a prescription for Hyoscyamine. She will establish care with a primary care physician at [facility]. Prior to discharge follow-up and return precautions were reviewed in detail with the patient who verbalized understanding and agreement with the plan. The patient was discharged in stable condition. Re-Evaluation/Progress : Time of Eval: 09:50 )( Re-Eval Abdomen: Soft Patient Status: Condition improved Re-Evaluation/Progress Note: Patient reports improvement of pain after 0.5mg of Dilaudid x 3. She received 1L of NS so far. Will start IVF at 100mls/hr and recheck her lactic acid in an hour. Consultation : Referral / Consult Name: Timothy Parsons MD Consulted With: Surgeon Requested Call at: 10:50 Call Returned at: 10:56 Note: Request Dr. Parsons to review the abd CT, who thinks the dilated CBD is not significant for post-cholecystectomy. There is no indication for surgery, but the patient will need to follow up with her bariatric surgeon for possible post-surgical surgery. Counseled Regarding: Diagnosis, Lab results Discharge & Departure Shift Change Sign-Out Patient Care Transferred: No Discussed Complaint(s): Yes Laboratory Evaluation: Lab evaluation discussed Imaging Studies: Imaging discussed Response to Therapy: Improved Primary Impression: Abdominal Pain Generalized Additional Impression: Obstipation Disposition: Home Discharge Condition All VS Reviewed: Yes Condition: Stable Patient Instructions: Acute Abdominal Pain (ED), Bowel Management After Bariatric Surgery (DC) Additional Instructions: Your etiology of your abdominal pain is unclear at this point. Our goal in the ED today was to evaluate for any life-threatening conditions, and your evaluation was reassuring. Your abdominal CT scan did not reveal any cause of your abdominal pain other than moderate ostipation/constipation. There is also some dilatation that the common bile duct after the prior cholescystectomy. This is a common finding after the gallbladder is removed and our surgeon agreed with this. Ideally, we recommend that you follow up with the bariatric surgeon who did the duodenal switch, but since you had it done in [place], it will be challenging to follow up. However, you can return to the surgeon who performed the hernia repair to explore other options. You will need a PCP for a referral to the surgeon. Please call [facility] to make an appointment sometime next week for follow up. We also prescribed a pain medication called Tramadol that you can take as needed for the pain. Per your request for antispasmodics, we also give you a prescription for Hyoscyamine. Please take it as needed for pain as well. You declined prescription laxatives today, but you can take some over the counter laxatives and drink plenty of water. It is very important that you keep your bowel movement regular. You should return to the ED immediately if you develop recurrent symptoms, fevers, vomiting, cough, shortness of breath, chest pain, lightheadedness, weakness or any other concerning signs or symptoms. Referrals: NOPCP (PCP) [facility] Attending Statement I saw, evaluated and discussed the care of this patient with Dr. Shahram Lopez and I agree with the documentation above. copies to: [facility] Shahram Lopez DO Jul 22, 2016 07:39 Oscar Fowler DO Jul 24, 2016 06:00
[2016-07-22 08:10] LABS: BASOPHILS % (AUTO) 0.7 % (0-3); EOSINOPHILS % (AUTO) 2.3 % (0-5); Mean Corpuscular Hemoglobin 29.9 pg (27.0-35.0); Mean Corpuscular Volume 94.2 fL (81-100); Platelet Count 301 bil/L (150-400)
[2016-07-22] MEDS: HYDROmorphone 0.5 mg/0.5 mL iSecure Syringe IVPUSH PRN ×3 (08:31→09:07)
[2016-07-22] MEDS ORDERED: 0.9% Sodium Chloride 1,000 ML IV SCH (09:50)
--- NOTE | 2016-07-22 10:26 | DRSVH ---
PROCEDURE: CT ABDOMEN AND PELVIS WITH CONTRAST (PNL-7102) INDICATIONS: Diffuse abdominal pain TECHNIQUE: After the administration of intravenous contrast, 5 mm thick sections acquired from the diaphragm to the symphysis. 5 mm coronal and sagittal reformats were acquired. For radiation dose reduction, the following was used: automated exposure control, adjustment of mA and/or kV according to patient farshad mims. COMPARISON: [facility], CT, CT ABD PELVIS W CON, 06/02/2016, 21:51. FINDINGS: Image quality: Excellent. ABDOMEN: Lung bases: Lung bases are clear. Heart size is normal. Solid organs: Liver and spleen are normal in size and enhancement. Gallbladder has been previously resected. Biliary system is again seen to be dilated to the same degree previously present with a ma ximal common duct diameter of 1.4 cm. Pancreas enhances normally. No adrenal nodules. Kidneys demo nstrate normal size and enhancement, without hydronephrosis. Peritoneum and bowel: Bowel loops demonstrate normal wall thickness and caliber. No free fluid or a ir. Nodes and vessels: No retroperitoneal or mesenteric adenopathy by size criteria. Aorta and inferior vena cava are normal in size. Miscellaneous: No ventral hernias. PELVIS: Genitourinary: Bladder wall thickness is normal. Miscellaneous: No inguinal hernias or adenopathy. Bones: No suspicious bony lesions. No vertebral body compression fractures. IMPRESSION: 1.4 cm common duct caliber with normal tapering of the common duct to the ampulla. Prior cholecystectomy. There is a moderate degree of colonic obstipation bilaterally, as a potential sour ce of abdominal pain. No free fluid is found, no diverticulitis is identified. Dictated by: Cam Dominguez M.D. on 07/22/2016 at 10:21 Approved by: Cam Dominguez M.D. on 07/22/2016 at 10:25
[2016-07-22 10:42] VITALS: BP 119/80; PULSE 86; O2SAT 99
[2016-07-22] MEDS ORDERED: TRAM50TA2 PO (12:06)
[2016-07-22] MEDS ORDERED: HYOS-22 PO (12:06)
[2016-07-22 12:14] VITALS: BP 112/72; PULSE 82; RESP 16; O2SAT 100
== END 2016-07-22 12:15 | disposition home or self-care (01) ==
LOC: SED 07:04
DX: R10.84 Generalized abdominal pain (principal); K59.00 Constipation, unspecified; E05.90 Thyrotoxicosis, unspecified without thyrotoxic crisis or storm; Z98.84 Bariatric surgery status; Z98.890 Other specified postprocedural states; F17.200 Nicotine dependence, unspecified, uncomplicated; F41.9 Anxiety disorder, unspecified; F32.9 Major depressive disorder, single episode, unspecified
CPT/HCPCS: 36415; 74177; 80053; 81002; 81025; 83605; 83690; 84439; 84443; 84702; 85025; 96361; 96374; 96375; 96376; 99285; J1170; J2405; J7030; Q9967

== ENCOUNTER 2016-11-08 13:55 | Observation (INO) | payer OTHER ==
[~2016-11-08] VITALS: Ht 167.6 cm; Wt 56.8 kg
[~2016-11-08 13:55] MED LIST changes: +HYOS-22 PO; +TRAM50TA2 PO
[2016-11-08 13:57] VITALS: BP 130/84; PULSE 77; RESP 16; O2SAT 100
[2016-11-08] MEDS ORDERED: 0.9% Sodium Chloride 1,000 ML IV ONE (14:33)
[2016-11-08] MEDS ORDERED: HYDROmorphone 0.5 mg/0.5 mL iSecure Syringe IVPUSH PRN (14:35)
--- NOTE | 2016-11-08 14:41 | ED.REPORT ---
HPI-Abd Pain F Under 41 Date of Service Nov 08, 2016 ED Provider: Neal Apodaca PA-C Padmini is a 41-year-old female with a history of weight loss surgery (duodenal switch) ovarian cyst, incarcerated hernia, hydrocephalus and mesenteric venous thrombosis recently presenting with department with a chief complaint of abdominal pain. Patient complains of gradual onset periumbilical abdominal pain first noted before noon. Patient reports eating some eggrolls for lunch as she thought she might be hungry. The pain has worsened since then. Described as stabbing, though she also reports symptoms are improving at time of presentation. reports one episode of diarrhea yesterday, no blood. Patient denies melena, hematochezia, urinary symptoms, vaginal bleeding/discharge, fever , chills, vomiting. Patient states she has had many workups for similar. 2 weeks ago she was diagnosed with mesenteric venous thrombosis and hospitalized [facility]. She is transitioned to Coumadin. Last INR was Monday and was 2.8. Patient admits having one to 2 alcoholic beverages up to 3 times a week. Patient reports she has not had her period in several months. Nursing Notes Stated Complaint: SEVERE ABDOMINAL PAIN Chief Complaint: Female Abdominal Pain Nursing Notes Reviewed: Yes Allergies: Coded Allergies: heparin (Verified Allergy, Intermediate, Rash, 11/08/16) HIVES Scheduled Acetazolamide (Acetazolamide) 250 Mg Tablet 250 MG PO BID Amphetamine Sulfate (Evekeo) 5 Mg Tablet 5 MG PO TID Cholecalciferol (Vitamin D3) (Vitamin D) 1,000 Unit Tablet 0 PO DAILY Diclofenac ER (Diclofenac ER) 25 Mg Tablet 0 PO DAILY Fluoxetine (Fluoxetine) 10 Mg Tablet 10 MG PO TID Gabapentin (Gabapentin) 600 Mg Tablet 1,200 MG PO DAILY Multivitamin (Multi Vitamin Daily) 1 Each Tablet 1 EACH PO DAILY Omeprazole (Omeprazole) 20 Mg Tablet.dr 20 MG PO DAILY Potassium (Potassium) 99 Mg Tablet 99 MG PO DAILY Scheduled PRN Hyoscyamine (Hyoscyamine) 0.125 Mg Tablet 0.125 MG PO Q4H PRN PRN For GI Cramps Ondansetron ODT (Zofran ODT) 8 Mg Tablet 8 MG PO Q12 HR PRN PRN For Nausea Ondansetron ODT (Zofran ODT) 4 Mg Tablet 4 MG PO Q4H PRN PRN For Nausea Propranolol HCl (Propranolol HCl) 10 Mg Tablet 20 MG PO DAILY PRN PRN OOO Tramadol (Tramadol) 50 Mg Tablet 50 MG PO Q4H PRN PRN For Pain Miscellaneous Medications Dextroamphetamine/Amphetamine (Amphetamine Mixed Salts) 20 Mg Tablet Divalproex (Divalproex) 250 Mg Tablet. Magnesium Amino Acid Chelate (Magnesium) 27 Mg Tablet 0 PO Methimazole (Methimazole) 10 Mg Tablet Zolpidem (Zolpidem) 10 Mg Tablet General Time Seen by MD: 14:00 Chief Complaint Abdominal pain Past Medical History Past Medical History ADHD Hydrocephalus Anxiety Migraines Hyperthyroidism Endometriosis Reports: Depression Past Surgical History Hernia repair duodenal switch SKin graft on head Reports: Cholecystectomy Smoking History Current Every Day Smoker Social History Alcohol Use: Denies alcohol use Drug Use: THC Ambulatory Status Independent Review of Systems General: Denies fever, chills, malaise. Respiratory: Denies dyspnea, cough, shortness of breath, wheezing. Cardiovascular: Denies chest pain, palpitations. Gastrointestinal: Denies vomiting, diarrhea, admits abdominal pain. Genitourinary: Denies frequency, urgency, dysuria, hematuria. Denies vaginal bleeding/discharge. Menstrual period is overdue. Otherwise as noted in HPI. Physical Exam General: Well appearing, well developed, well nourished, moderate distress. Appears to be in a lot of pain. Head: Atraumatic, normocephalic. Eyes: No scleral icterus or injection. No discharge. Vision grossly intact. ENT: Voice clear, hearing grossly intact. Respiratory: Regular rate and rhythm. Breath sounds present, clear to auscultation and equal bilaterally. No respiratory distress. No increased work of breathing, speaks in complete sentences. Cardiovascular: Regular rate and rhythm, without murmur, gallop or rub. No pedal edema. Gastrointestinal: Hypoactive bowel sounds. Abdomen is flat and normal to inspection. Diffuse mild tenderness does not localize. Negative CVA tenderness. Skin: Warm and dry. Neurological: Grossly nonfocal. Psychological: Alert and oriented. Speech appropriate, linear and logical. Behavior appropriate. Initial Vital Signs Vital Signs (First) Date Time Temp Pulse Resp B/P Pulse Ox O2 Delivery O2 Flow Rate FiO2 11/08/16 13:57 36.7 77 16 130/84 100 Room Air Mildly elevated blood pressure Interpretation & Diagnostics Lab Results Interpretation Result Diagram: 11/08/16 1925 11/08/16 1440 Test 11/08/16 14:40 11/08/16 14:48 11/08/16 15:05 Sodium Level 137mEq/L (134-144) Potassium Level 3.2mEq/L (3.5-5.2) Chloride Level 101mEq/L (97-108) Carbon Dioxide Level 23mmol/L (18-29) Blood Urea Nitrogen 7mg/dL (6-24) Creatinine 0.58mg/dL (0.57-1.00) Estimat Glomerular Filtration Rate 165mL/min (>59) Glucose Level 93mg/dL (60-99) Lactic Acid Level 1.1mmol/L (0.4-2.0) Calcium Level 8.0mg/dL (8.5-10.1) Total Bilirubin 0.2mg/dL (0.0-1.2) Aspartate Amino Transf (AST/SGOT) 45U/L (0-50) Alanine Aminotransferase (ALT/SGPT) 37U/L (0-32) Alkaline Phosphatase 137U/L (25-150) Total Protein 6.4g/dL (6.4-8.4) Albumin 3.3g/dL (3.4-5.0) Lipase 12U/L (13-60) Hold Pineda Top Tube Received (Received) Prothrombin Time 27.4sec (8.1-12.5) Prothromb Time International Ratio 2.51ratio Urine Color Straw (YELLOW) Urine Appearance Hazy (CLEAR,HAZY) Urine pH 8.0 (5.0-8.0) Urine Specific [place] 1.010 (1.003-1.035) Urine Protein Negativemg/dL (NEG,TRACE) Urine Glucose (UA) Negativemg/dL (NEGATIVE) Urine Ketones Negativemg/dL (NEGATIVE) Urine Occult Blood Negative (NEGATIVE) Urine Nitrite Negative (NEGATIVE) Urine Bilirubin Negative (NEGATIVE) Urine Urobilinogen Normalmg/dL (NORMAL) Urine Leukocyte Esterase Negative (NEGATIVE) Urine RBC 0-2/hpf (0-2) Urine WBC 0-5/hpf (0-5) Urine Epithelial Cells Occasional/hpf (NONE-MOD) Urine Crystals None seen (NONE SEEN) Urine Bacteria None/hpf (NONE-FEW) Urine Hyaline Casts None/lpf (NONE) Urine Granular Casts None seen (NONE SEEN) Urine Waxy Casts None seen (NONE SEEN) Urine Red Blood Cell Casts None seen (NONE SEEN) Urine White Blood Cell Casts None seen (NONE SEEN) Urine Mucus None seen (None Seen) Urine Trichomonas None seen (NONE SEEN) Urine Yeast None (NONE SEEN) Urinalysis Comment None Urine Culture Reflexed Not indicated CT Abd / Pelvis Interpretation PROCEDURE: CT ABDOMEN AND PELVIS WITH CONTRAST ([id number]) INDICATIONS: abdominal pain IMPRESSION: 1. Small bowel obstruction possibly related to small bowel intussusception in the left upper quadrant of the abdomen. 2. Small amount of free fluid in lower pelvis. No free air identified. 3. Status post gastric bypass and cholecystectomy. 4. Intrahepatic and extrahepatic biliary dilatation as diminished in interval since prior exam obtained 07/22/16 and is likely related to prior cholecystectomy. Please correlate with laboratory data. 5. Findings discussed with Dr. Neal Apodaca on 11/08/2016 at 1659 hrs. Interpretation / Wet Read by: Discussed w radiologist Re-Eval/Medical Decision Med Decision/Clinical Course Real female with a recent history of weight loss surgery (described as a "duodenal switch" and the general surgeon's note from [facility]) and mesenteric venous thrombus presents emergency Department with chief complaint of abdominal pain since midday today. Gradually worsening to a stabbing periumbilical pain, improving at time of presentation. Long history of similar, with many workups. Diagnosed with SMA thrombus at [facility] 2 weeks ago. Physical examination reveals a diffusely tender abdomen with voluntary guarding. Negative CVA tenderness. Normal vitals. Patient appears uncomfortable but otherwise well. CBC is negative for leukocytosis and reveals a moderate anemia with a hemoglobin of 10, hematocrit of 30.8. CMP significant for mildly low potassium at 3.2, mildly low calcium at 8.0, mildly elevated ALT 37, low albumin 3.3, low lipase 12. Not thought to be clinically significant. Urinalysis is reassuring against UTI, kidney stone. is negative. INR 2.51 Discussed the case with Dr. Archer. He recommends CT imaging and CT abdomen and pelvis with contrast is ordered to assess mesenteric venous thrombus. This returned significant for small bowel obstruction possibly related to small bowel intussusception in the left upper quadrant. I discussed the case with Dr. Parsons of Gen. surgery. He feels this is unlikely to be a surgical abdomen but advises bowel rest, IV fluids. Will consult. I discussed the case with hospitalist, who accepted admission. Patient is transferred to the floor in stable condition. Re-Evaluation/Progress : Time of Eval: 15:37 Re-Evaluation/Progress Note: Patient reports pain improved though stomach still feels "sore." Consultation #1: Referral / Consult Name: Timothy Parsons MD Consulted With: Surgeon Note: Discussed the case, Dr. Parsons doubts this is a surgical condition, recommend nothing by mouth, IV fluids, pain control. Will consult in hospital. Consultation #2: Referral / Consult Name: PITER SYED DO Consulted With: Hospitalist Call Returned at: 17:56 Glaucoma Specialist: Accepts admit Discharge & Departure Primary Impression: Small bowel obstruction Disposition: ADMITTED TO HOSPITAL Referrals: NOPCP (PCP) EDSupervising Provider for APC: Bertin Bobby Seth PA-C Nov 08, 2016 14:41 Re-Eval/Medical Decision Med Decision/Clinical Course Real female with a recent history of weight loss surgery (described as a "duodenal switch" and the general surgeon's note from [facility]) and mesenteric venous thrombus presents emergency Department with chief complaint of abdominal pain since midday today. Gradually worsening to a stabbing periumbilical pain, improving at time of presentation. Long history of similar, with many workups. Diagnosed with SMA thrombus at [facility] 2 weeks ago. Physical examination reveals a diffusely tender abdomen with voluntary guarding. Negative CVA tenderness. Normal vitals. Patient appears uncomfortable but otherwise well. CBC is negative for leukocytosis and reveals a moderate anemia with a hemoglobin of 10, hematocrit of 30.8. CMP significant for mildly low potassium at 3.2, mildly low calcium at 8.0, mildly elevated ALT 37, low albumin 3.3, low lipase 12. Not thought to be clinically significant. Urinalysis is reassuring against UTI, kidney stone. INR 2.51 Discussed the case with Dr. Archer. He recommends CT imaging and CT abdomen and pelvis with contrast is ordered to assess mesenteric venous thrombus. This returned significant for small bowel obstruction possibly related to small bowel intussusception in the left upper quadrant. I discussed the case with Dr. Parsons of Gen. surgery. He feels this is unlikely to be a surgical abdomen but advises bowel rest, IV fluids. Will consult. Requested admission. Re-Evaluation/Progress : Time of Eval: 15:37 Re-Evaluation/Progress Note: Patient reports pain improved though stomach still feels "sore." Consultation #1: Referral / Consult Name: Timothy Parsons MD Consulted With: Surgeon Note: Discussed the case, Dr. Parsons doubts this is a surgical condition, recommend nothing by mouth, IV fluids, pain control. Will consult in hospital. Consultation #2: Referral / Consult Name: PITER SYED DO Consulted With: Hospitalist Call Returned at: 17:56 Glaucoma Specialist: Accepts admit Discharge & Departure Referrals: NOPCP (PCP) Neal Apodaca PA-C Nov 08, 2016 14:41
[2016-11-08 14:51] LABS: BASOPHILS % (AUTO) 0.3 % (0-3); EOSINOPHILS % (AUTO) 0 % (0-5); MONOCYTES % (AUTO) 8.2 % (4-12); Mean Corpuscular Hemoglobin 29.4 pg (27.0-35.0); Mean Corpuscular Volume 90.6 fL (81-100); Platelet Count 263 bil/L (150-400)
[2016-11-08 15:04] LABS: INR 2.51 ratio
[2016-11-08 15:25] LABS: APPEARANCE,URINE HAZY (CLEAR,HAZY); COLOR,URINE STRAW (YELLOW); OCCULT BLOOD,URINE NEGATIVE (NEGATIVE); UROBILINOGEN,URINE NORMAL (NORMAL)
[2016-11-08] MEDS ORDERED: Famotidine 10 mg/mL 2 mL Inj IVPUSH ONE (15:45)
[2016-11-08] MEDS ORDERED: Famotidine Inj 20 MG in IV Premix 1 EACH IV ONE (15:55)
--- NOTE | 2016-11-08 17:08 | DRSVH ---
PROCEDURE: CT ABDOMEN AND PELVIS WITH CONTRAST ([id number]) INDICATIONS: abdominal pain TECHNIQUE: After the administration of intravenous contrast, 5 mm thick sections acquired from the diaphragm to the symphysis. 5 mm coronal and sagittal reformats were acquired. For radiation dose reduction, the following was used: automated exposure control, adjustment of mA and/or kV according to patient farshad mims. COMPARISON: [facility], CT, CT ABD PELVIS W CON, 07/22/2016, 9:45. FINDINGS: Image quality: Excellent. ABDOMEN: Lung bases: Lung bases are clear. Heart size is normal. Solid organs: Liver and spleen are normal in size and enhancement. Gallbladder is surgically absent . The intrahepatic extrahepatic biliary ducts are dilated, but decreased in diameter compared to with the common bile duct measuring 1.1 cm in diameter. Pancreas enhances normally. No adrenal no dules. Kidneys demonstrate normal size and enhancement, without hydronephrosis. Peritoneum and bowel: Postsurgical changes compatible prior gastric bypass are noted. There are multi ple dilated loops of proximal small bowel. Loops of small bowel are dilated up to 4.2 cm in diameter. There is a intussusception involving loops of small bowel in the left upper quadrant (series 2, imag es 24-31; series 4, images 10-16). Small amount of free fluid noted in the lower pelvis. No free air is identified. Gas and stool are noted in the colon. Nodes and vessels: No retroperitoneal or mesenteric adenopathy by size criteria. Aorta and inferior vena cava are normal in size. Portal venous system enhances normally. Miscellaneous: No ventral hernias. PELVIS: Genitourinary: Bladder wall thickness is normal. Miscellaneous: No inguinal hernias or adenopathy. Bones: No suspicious bony lesions. No vertebral body compression fractures. Spine degenerative disc disease and facet arthropathy. IMPRESSION: 1. Small bowel obstruction possibly related to small bowel intussusception in the left upper quadrant of the abdomen. 2. Small amount of free fluid in lower pelvis. No free air identified. 3. Status post gastric bypass and cholecystectomy. 4. Intrahepatic and extrahepatic biliary dilatation as diminished in interval since prior exam obtain ed 07/22/16 and is likely related to prior cholecystectomy. Please correlate with laboratory data. 5. Findings discussed with Dr. Neal Apodaca on 11/08/2016 at 1659 hrs. Dictated by: Mary Mai MD, PhD on 11/08/2016 at 15:54 Approved by: Mary Mai MD, PhD on 11/08/2016 at 16:06
[2016-11-08] MEDS ORDERED: Polyethylene Glycol (PEG) 17 Gm Powder PO PRN (17:50)
[2016-11-08] MEDS: HYDROmorphone 0.5 mg/0.5 mL iSecure Syringe IVPUSH PRN ×5 (17:50→22:00)
[2016-11-08 18:17] VITALS: BP 120/80; PULSE 61; RESP 16; O2SAT 100
--- NOTE | 2016-11-08 18:40 | NUR ---
Admit Pt comes to floor on gurney from ER. Pt grimacing in pain with tears in eyes. Pt stood to transfer to bed. MD in room. A&OX4. Report received then transferred to oncoming nurse. Care continues
[2016-11-08 18:51] VITALS: BP 110/78; PULSE 64; RESP 18; O2SAT 100
[2016-11-08] MEDS ORDERED: KCl 40 mEq/D5W 500 mL 40 MEQ in IV Premix 500 EACH IV ONE (19:10)
[2016-11-08] MEDS ORDERED: KCl 40 mEq/D5W 500 mL 40 MEQ in IV Premix 1 EACH IV ONE (19:19)
[2016-11-08 19:34] LABS: BASOPHILS % (AUTO) 0.6 % (0-3); EOSINOPHILS % (AUTO) 0 % (0-5); Mean Corpuscular Hemoglobin 29.2 pg (27.0-35.0); Platelet Count 269 bil/L (150-400)
--- NOTE | 2016-11-08 19:38 | PCM.HPMED ---
Subjective Date of Service Nov 08, 2016 Primary Provider: Admitting Physician: Primary Care Physician: Luz Attending Physician: Admit Status: From the Emergency Department, Full Admit Chief Complaint: Midabdominal pain. . History of Present Illness: Padmini Coates is a 41-year-old female with a past medical history significant for hydrocephalus status post temporary shunt and skull flap, depression, anxiety, ADD, hyperthyroidism,weight loss surgery in [place] called a "duodenal switch", incarcerated hernia, and recent mesenteric venous thrombosis on warfarin who presented to [facility] emergency Department with mid abdominal pain since 12:00 this afternoon. She describes the pain a dull ache with intermittent sharpness. The abdominal pain is intermittent and comes in waves. She rates the pain a +8 out of 10 in severity at its worst. She has had associated nausea, right back pain, and headache. She reports that if she tries to make herself vomit she gets mild relief despite not actually vomiting. She denies chest pain, sore throat, cough, fever , chills, dysuria, or constipation. She reports she had a small episode of diarrhea this morning. She reports that she normally has a bowel movement daily. She denies hematochezia or melena. Vital signs in the ER: Temperature 36.7. Pulse 77. Respiratory rate 16. Blood pressure 130/84. Pulse ox 100% room air. She received hydromorphone IV 0.5 mg 2, famotidine IV 20 mg 1, calcium carbonate 500 mg 1, acetaminophen 975 mg 1, and 1 L of NS. PCP is Sandi Aguilar PA-C. . Review of Systems: A comprehensive review of systems was conducted with the patient and found to be negative except as above in the History of Present Illness. . Allergies Coded Allergies: heparin (Verified Allergy, Intermediate, Rash, 11/08/16) HIVES Home Medications Acetazolamide 250 mg twice a day. Amphetamine sulfate 5 mg twice daily. Fluoxetine 10 mg 3 times a day. Gabapentin 600 mg twice daily. Methimazole 10 mg every morning and 5 mg every afternoon. Multivitamin 1 daily. Omeprazole 20 mg daily as needed. Potassium 99 99mg daily. Vitamin D3 1000 IU daily. Warfarin 5 mg daily. Zolpidem 10 mg daily at bedtime as needed for insomnia. . PMH 1. Ductal stenosis with hydrocephalus status post temporary shunt and skull flap. 2. Splenic infarct. 3. Depression. 4. Anxiety. 5. ADD. 6. Hyperthyroidism. 7. Mesenteric venous thrombosis on warfarin. 8. Insomnia. 9. GERD. 10. Migraine headaches. . Surgical History 1. Strangulated hernia repair. 2. Temporary shunt and skull flap for hydrocephalus. 3. Cholecystectomy. 4. Duodenal switch. . Family History Mother with hypothyroidism. Father with diet-controlled diabetes mellitus type II. Sister who is healthy. . Social History Hx Alcohol Use: Yes (2 mixed vodka drinks 3x/week) Hx Substance Use: Yes (THC) Smoking Status: Current Every Day Smoker (1 PPD x 10 years) Additional Information The patient is single. She has no children. 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 Exam Vital Signs Vital Sign - Last Date Time Temp Pulse Resp B/P Pulse Ox O2 Delivery O2 Flow Rate FiO2 11/08/16 13:57 36.7 77 16 130/84 100 Room Air Exam General: Young female lying in bed, appears uncomfortable, in no acute distress , well-developed, well-nourished, appropriately interactive. HEENT: Normocephalic, atraumatic. External ears without defect. Pupils equal, round, and reactive to light. Anicteric sclerae, moist conjunctivae, and no lid lag. Oropharynx free of erythema and cobble stoning with moist mucosa. Neck: Supple with full range of motion. No jugular venous distension. No bruits. No lymphadenopathy or thyromegaly. Cardiovascular: Regular rate and rhythm without murmurs, rubs, or gallops appreciated Pulmonary: Clear to auscultation bilaterally without crackles, wheezes, or rhonchi. Normal respiratory effort with no use of accessory muscles. Abdomen: Soft, mild tenderness to palpation in mid abdomen, nondistended, bowel sounds present. No hepatosplenomegaly or masses appreciated. Extremities: No clubbing, cyanosis, or edema. Several upper extremity lesions reportedly from bee stings. Skin: Normal temperature, turgor, and texture; no rash, ulcers, or subcutaneous nodules appreciated. Neurological: Cranial nerves grossly intact. Normal muscle strength, tone, and bulk. Reflexes, coordination, and sensory function within normal limits. No known gait impairment. Psychiatric: Normal mood and affect. Alert and oriented to person, place, and time. . Lab and Diagnostics Labs Item Value Date Time Lactic Acid Level 1.1 mmol/L 11/08/16 1440 Item Value Date Time Total Bilirubin 0.2 mg/dL 11/08/16 1440 Calcium Level 8.0 mg/dL L 11/08/16 1440 Aspartate Amino Transf (AST/SGOT) 45 U/L 11/08/16 1440 Alanine Aminotransferase (ALT/SGPT) 37 U/L H 11/08/16 1440 Alkaline Phosphatase 137 U/L 11/08/16 1440 Total Protein 6.4 g/dL 11/08/16 1440 Albumin 3.3 g/dL L 11/08/16 1440 Lipase 12 U/L L 11/08/16 1440 Item Value Date Time Prothrombin Time 27.4 sec H 11/08/16 1448 Prothromb Time International Ratio 2.51 ratio 11/08/16 1448 Result Diagram: 11/08/16 1440 11/08/16 1440 X-Rays, CTs and MRIs CT ABDOMEN AND PELVIS WITH CONTRAST niya disc disease and facet arthropathy. IMPRESSION: 1. Small bowel obstruction possibly related to small bowel intussusception in the left upper quadrant of the abdomen. 2. Small amount of free fluid in lower pelvis. No free air identified. 3. Status post gastric bypass and cholecystectomy. 4. Intrahepatic and extrahepatic biliary dilatation as diminished in interval since prior exam obtained 07/22/16 and is likely related to prior cholecystectomy. Please correlate with laboratory data. 5. Findings discussed with Dr. Neal Apodaca on 11/08/2016 at 1659 hrs. Dictated by: Mary Mai MD, PhD on 11/08/2016 at 15:54 . Assessment & Plan Padmini Coates is a 41-year-old female with a past medical history significant for hydrocephalus status post temporary shunt and skull flap, depression, anxiety, ADD, hyperthyroidism,weight loss surgery in [place] called a "duodenal switch", incarcerated hernia, and recent mesenteric venous thrombosis on warfarin who presented to [facility] emergency Department with mid abdominal pain since 12:00 this afternoon. 1. Acute small bowel obstruction, present on admission. Active. - Patient presented with mid abdominal pain, nausea, right-sided back pain, and diarrhea. - Patient has a history of several abdominal surgeries including cholecystectomy , stringy related hernia repair, and duodenal switch which puts the patient at high risk for adhesions and small bowel obstruction. - CT abdomen and pelvis with contrast demonstrated small bowel obstruction possibly related to small bowel intussusception in the left upper quadrant of the abdomen, as above. - Continue NS at 100 mL/hr. - Ordered acetaminophen 975 mg every 6 hours as needed for mild to moderate pain and hydromorphone 0.5 mg every 2 hours as needed for severe pain. Will try to be conservative with narcotics. - Encouraged the patient to be up ambulating when she is not in pain. - Dr. Parsons of general surgery was consulted and recommends bowel rest including: nothing by mouth, IV fluid hydration, and ambulation. Chronic problems: 2. Mesenteric venous thrombosis, present on admission. Presumed stable. - INR 2.51 therapeutic on warfarin. - Continue warfarin with dosing per pharmacist. If surgery is required will need to reverse with FFP and vitamin K. 3. Ductal stenosis with hydrocephalus status post temporary shunt and skull flap, present on admission. Stable. - Continue acetazolamide 250 mg twice daily. 4. Depression and anxiety, present on admission. Stable. - Continue fluoxetine 10 mg 3 times a day. 5. Attention deficit disorder, present on admission. Stable. - Continue amphetamine sulfate 5 mg twice daily. 6. Hyperthyroidism, present on admission. Stable. - Continue methimazole 10 mg every morning and 5 mg every afternoon. 7. Migraine headaches, not present on admission. Stable. - Continue gabapentin 600 mg twice a day. PRN antiemetics: Zofran and Maalox. PRN bowel regimen: Senna and MiraLAX. PRN analgesics: Tylenol. Patient is admitted under inpatient status with expected length of stay greater than 2 midnights due to severity of presenting symptoms, risk of adverse event, and complexity of treatment plan. . VTE Prophylaxis: Theraputic Anticoag with Warfarin Resuscitation Status: CPR: Attempt Resuscitation Attending Statement The patient was seen and examined together with house staff on 11/08/2016 and I agree with the history, exam and plan as outlined in the note above. copies to: SANDI AGUILAR PA-C, [place] M DO Nov 08, 2016 17:55 Anna Rincon DO Nov 09, 2016 04:53
[2016-11-08] MEDS: 0.9% Sodium Chloride 1,000 ML IV SCH (19:54)
--- NOTE | 2016-11-08 20:11 | CONS ---
[address] [address] CONSULTATION REPORT PATIENT: SAMAN TORRES : 1975 MR#: [id number] ADMIT: 11/08/2016 JOB ID: [id number] DATE OF SERVICE: 11/08/2016 CHIEF COMPLAINT: Abdominal pain. HISTORY OF PRESENT ILLNESS: I am asked by Neal Apodaca PA-C, in emergency department to evaluate the patient for abdominal pain. She has had multiple workups in multiple institutions over the past several months for abdominal pain. Her abdominal history is quite complicated in that she underwent a duodenal switch for weight loss in [place] in 2009. Following that, she had incisional hernia that has been repaired as well. She does not know if her hernia repair took place with mesh or not. She has also undergone cholecystectomy. She presented to the emergency department today after she had "not been feeling well" for most of the day. She had pain mainly in the right upper quadrant of her abdomen. She has not had any fevers or chills. She denies vomiting although she states for several years she has had the urge to vomit, and states that her chronic abdominal pain is partially alleviated by vomiting. Her last bowel movement was this morning which was a small loose stool without blood. She has passed some flatus but not very much. Two weeks ago, she was diagnosed with mesenteric venous thrombosis and hospitalized at [facility]. She was started on anticoagulation and has been transitioned to Coumadin, which she has continued to take regularly. PAST MEDICAL HISTORY: ADHD, hydrocephalus, anxiety, migraine headaches, hyperthyroidism, endometriosis, depression. PAST SURGICAL HISTORY: Duodenal switch, hernia repair, cholecystectomy, skin graft. MEDICATIONS AT HOME: Include acetazolamide, amphetamine, vitamin D3, diclofenac, fluoxetine, gabapentin, multivitamin, omeprazole, potassium, hyoscyamine, Zofran, propranolol, tramadol, warfarin. ALLERGIES: To HEPARIN which causes hives. SOCIAL HISTORY: She smokes cigarettes and admits to marijuana use, denies alcohol use. FAMILY HISTORY: Noncontributory, no family history of GI malignancy. REVIEW OF SYSTEMS: A 10-point review of systems is negative except as described in history of present illness. Specifically denies unplanned weight loss. PHYSICAL EXAM: Body mass index 20.2, temperature 36.6, pulse 64, blood pressure 110/78, saturation 100% on room air. General: She is resting in bed in no acute distress. HEENT: Sclerae are anicteric. Mucous membranes are moist. Neck: No lymphadenopathy. Chest is clear. Heart: Regular rate and rhythm. No murmurs. Abdomen is nondistended, slightly firm, mild tenderness to palpation throughout all quadrants. Bowel tones are present. She has several scars on the abdomen, but states that those are from skin laceration and not surgical scars. Extremities: No edema. Neuro: No deficits. Psych: Affect is appropriate. LABORATORIES: White count is 6.0, hematocrit 30.8, platelets 263. Differential is normal. Creatinine 0.58, glucose 93, lactate 1.1, lipase 12. Albumin 3.3. INR 2.51. IMAGING: CT scan of the abdomen and pelvis shows multiple dilated loops of small bowel. There is intussusception involving loops of small bowel in the left upper quadrant of the abdomen. There are surgical changes of prior gastric bypass and cholecystectomy. There is a small amount of free fluid in the lower pelvis. No venous thrombosis is described. There is no free air. ASSESSMENT AND PLAN: A 41-year-old woman with a complex abdominal surgical history including an operation which is not routinely done in the [place] because of malnutrition and postoperative issues, which is the duodenal switch, admitted with abdominal pain and intussusception on CT scan. I wonder if intussusception is really a clinically relevant entity for her or not. Sometimes intussusception is an incidental finding on CT scan. There are no significant inflammatory changes noted on the CT scan of the intussuscepted segment, and in a woman with very recently diagnosed mesenteric venous thrombosis, she has a reason to potentially have a lead point causing intussusception. I recommend conservative treatment, including n.p.o., IV fluids, bowel rest. It is possible that if she does not improve, she will require surgical intervention. In the big picture, I strongly recommended that she establish care with a bariatric surgeon. She needs to have a bariatric surgeon manage her nutritional issues following the operation that she has had in the past, because they are significant. She also needs to have an established bariatric surgeon to help tackle the expected postoperative issues that she will continue to have in life because of her prior operation.
--- NOTE | 2016-11-08 20:26 | PCM.CONPHA ---
Subjective Epigastric abdominal pain. . Reason for Pharmacy Consult: Anticoagulation Management Assessment/Plan Assessment/Plan Warfarin Management by Pharmacy Indication: mesenteric venous thrombosis Home Dose: 5 mg daily (confirmed with pt) INR Goal: 2-3 Duration: TBD INR: 2.51 Assessment/Plan -Therapeutic INR. Dose not taken prior to admit. -Will continue warfarin 5 mg this evening. Pharmacy to monitor. Elli Miner Dwaine Pharm.D. Fran Calloway Nov 08, 2016 20:26
[2016-11-08] MEDS ORDERED: WARF5TAB PO (21:34)
[2016-11-08 22:12] VITALS: PULSE 62
--- NOTE | 2016-11-08 22:24 | NUR ---
Pain Pt c/o pain 10 out of 10 to RUQ abdomen. Observed pt to be extremely restless, "I can't find a comfortably position", tearful and grimacing also observed. 0.5mg IV Dilaudid given at 2007, 2111, & 2199 -per pt no relief. "The second dose (Dilaudid) helped a little but not for very long." Night hospitalist notified, no new orders at this time. VSS, bowel tones present, very hypoactive. Pt states last ate at lunch time and could not keep it down. Pt remains NPO, ice chips okay per Dr. De La Torre. Addendum: 11/08/16 at 2235 by TRE MAGALLANES RN Per night hospitalist, admin 1mg IV Dilaudid now and is ordering repeat labs stat. Also, per pt no c/o N/V at this time. Per Dr. De La Torre and night hospitalist, ok to admin coumadin 5mg. Addendum: 11/09/16 at 0511 by TRE MAGALLANES RN Pt very tearful, restless, anxious. Requested Ativan IV from night hospitalist, no new orders at this time. Addendum: 11/09/16 at 0514 by TRE MAGALLANES RN New order for IV Ativan 0.5mg per night hospitalist.
[2016-11-08] MEDS ORDERED: HYDROmorphone 1 mg/mL Inj IVPUSH ONE (22:30)
[2016-11-08 23:01] LABS: BASOPHILS % (AUTO) 0.4 % (0-3); EOSINOPHILS % (AUTO) 0 % (0-5); Mean Corpuscular Hemoglobin 29.3 pg (27.0-35.0); Mean Corpuscular Volume 90.3 fL (81-100); NEUTROPHILS % (AUTO) 64.2 % (40-74); Platelet Count 273 bil/L (150-400)
[2016-11-09] VITALS (7 sets, daily range): BP systolic 116–142; BP diastolic 70–92; PULSE 65–105; RESP 17–22; O2SAT 92–100
[2016-11-09] MEDS: HYDROmorphone 0.5 mg/0.5 mL iSecure Syringe IVPUSH PRN ×5 (01:14→09:12)
[2016-11-09] MEDS: Alum-Mag Hydrox-Simeth 30 mL Suspension PO PRN ×2 (01:55→12:46)
--- NOTE | 2016-11-09 03:02 | NUR ---
NG NG ordered by night hospitalist. Attempted insertion X3 with premed IV Dilaudid and IV Ativan. Unable to place NG, pt very tense and hard for her to relax enough to advance tubing. Pain/anxiety appears to be less than start of shift. C/o pain to RUQ of 5 out of 10. Will pass to day shift NG order, and unsuccessful. Addendum: 11/09/16 at 0310 by TRE MAGALLANES RN Night hospitalist notified of unsuccessful NG placement. No N/V. Pain levels decreased to 5 out of 10 and mostly to right lower back. Encouraging pt to ambulate room/hallway.
[2016-11-09] MEDS: 0.9% Sodium Chloride 1,000 ML IV SCH ×2 (03:49→13:19)
[2016-11-09] MEDS: Ondansetron 2 mg/mL 2 mL Inj IVPUSH PRN ×3 (04:57→14:54)
--- NOTE | 2016-11-09 07:23 | PROG NOTE ---
[address] [address] PROGRESS NOTE PATIENT: SAMAN TORRES : 1975 MR#: [id number] ADMIT: 11/08/2016 JOB ID: [id number] DATE: 11/09/2016 SUBJECTIVE: The patient is seen in followup. She feels somewhat better this morning. Last night, attempts were made to place a nasogastric tube, which were unsuccessful. She is not passing flatus. She describes her pain as being located in the epigastrium and radiating across the right upper abdomen to her right flank. OBJECTIVE: Temperature 36.8, pulse 68, blood pressure 142/91, saturation 98% on room air. General: She is resting in bed, mildly sedated, in no acute distress. Chest is clear. Heart: Regular rate and rhythm. No murmurs. Abdomen is nondistended, soft. Bowel tones are fairly normal. She is mildly tender in the right upper abdomen. LABORATORIES: White count is 8.3, hematocrit 31.8, platelets 273. Differential is normal. Creatinine 0.57, lactate 0.6, total bilirubin 0.7, AST 415, ALT 104, alkaline phosphatase 280, albumin 3.2. ASSESSMENT AND PLAN: A 41-year-old woman with abdominal pain, small bowel intussusception on CT, new elevated liver function tests. Based on the nature of her pain, location, and now markedly abnormal liver function tests, I think that deserves evaluation with additional imaging today. I would recommend either abdominal ultrasound versus MRCP, since her bile duct has looked abnormal on previous imaging studies. Recommend continuing to keep her n.p.o. with IV fluids. I will discuss plans for additional imaging with the Hospitalists service.
[2016-11-09] MEDS ORDERED: Pantoprazole 40 mg ER24 Tablet PO SCH (07:30)
[2016-11-09 07:48] LABS: INR 4.33 ratio
[2016-11-09] MEDS ORDERED: Amphetamines (Mixed) 10 mg Tablet PO SCH (08:30)
--- NOTE | 2016-11-09 09:32 | PCM.PNMED ---
Subjective Date of Service Nov 09, 2016 Subjective Patient seen and examined. In pain. Vitals noted. Exam Vital Signs Vital Sign - Last Date Time Temp Pulse Resp B/P Pulse Ox O2 Delivery O2 Flow Rate FiO2 11/09/16 09:12 68 11/09/16 07:58 36.4 22 121/79 98 Room Air Intake and Output 11/08/16 11/08/16 11/09/16 Cumulative From/Thru 15:00 23:00 07:00 11/08/16 13:57 - 11/09/16 05:52 Intake Total 1000 ml 767 ml 1767 ml Output Total 850 ml 850 ml Balance 1000 ml -83 ml 917 ml Intake Oral 50 ml 50 ml IV Total 1000 ml 717 ml 1717 ml Output Urine Total 850 ml 850 ml # Bowel Movements 0 0 Exam General: Young female lying in bed, appears uncomfortable Neck: Supple with full range of motion. No jugular venous distension. No bruits. No lymphadenopathy or thyromegaly. Cardiovascular: Regular rate and rhythm without murmurs, rubs, or gallops appreciated Pulmonary: Clear to auscultation bilaterally without crackles, wheezes, or rhonchi. Normal respiratory effort with no use of accessory muscles. Abdomen: Soft. Tender to palpation. Hyperactive BS. Extremities: No clubbing, cyanosis, or edema. Several upper extremity lesions reportedly from bee stings. . Lab and Diagnostics Result Diagram: 11/08/16225311/08/162253 X-Rays, CTs and MRIs CT ABDOMEN AND PELVIS WITH CONTRAST niya disc disease and facet arthropathy. IMPRESSION: 1. Small bowel obstruction possibly related to small bowel intussusception in the left upper quadrant of the abdomen. 2. Small amount of free fluid in lower pelvis. No free air identified. 3. Status post gastric bypass and cholecystectomy. 4. Intrahepatic and extrahepatic biliary dilatation as diminished in interval since prior exam obtained 07/22/16 and is likely related to prior cholecystectomy. Please correlate with laboratory data. 5. Findings discussed with Dr. Neal Apodaca on 11/08/2016 at 1659 hrs. Dictated by: Mary Mai MD, PhD on 11/08/2016 at 15:54 . Assessment & Plan Padmini Coates is a 41-year-old female with a past medical history significant for hydrocephalus status post temporary shunt and skull flap, depression, anxiety, ADD, hyperthyroidism,weight loss surgery in [place] called a "duodenal switch", incarcerated hernia, and recent mesenteric venous thrombosis on warfarin who presented to [facility] emergency Department with mid abdominal pain since 12:00 this afternoon. #. Acute small bowel obstruction with intussusception , present on admission. Active. - Patient presented with mid abdominal pain, nausea, right-sided back pain, and diarrhea. - Patient has a history of several abdominal surgeries including cholecystectomy , stringy related hernia repair, and duodenal switch which puts the patient at high risk for adhesions and small bowel obstruction. - CT abdomen and pelvis with contrast demonstrated small bowel obstruction possibly related to small bowel intussusception in the left upper quadrant of the abdomen, as above. - Continue NS at 100 mL/hr. - Ordered acetaminophen 975 mg every 6 hours as needed for mild to moderate pain and hydromorphone 0.5 mg every 2 hours as needed for severe pain. Will try to be conservative with narcotics. - Dr. Parsons of general surgery was consulted recs: nothing by mouth, IV fluid hydration, and ambulation. Conservative management and evaluation of elevated liver enzymes # Elevated LFTs - etiology uknonw at this point - h/o cholecystectomy - CT abd as noted above, intra and extra hepatic dilation - will get abdominal US and Hepatitis panel - patient on methimazole at home, will hold due to hepatotoxicity - GI consult Chronic problems: #. Mesenteric venous thrombosis, present on admission. Presumed stable. - INR 2.51 therapeutic on warfarin. Trended up today - Continue warfarin with dosing per pharmacist. If surgery is required will need to reverse with FFP and vitamin K. #. Ductal stenosis with hydrocephalus status post temporary shunt and skull flap, present on admission. Stable. - Continue acetazolamide 250 mg twice daily once patient po #. Depression and anxiety, present on admission. Stable. - Continue fluoxetine 10 mg 3 times a day once patient po #. Attention deficit disorder, present on admission. Stable. - Continue amphetamine sulfate 5 mg twice daily once patient po #. Hyperthyroidism, present on admission. Stable. - Continue methimazole 10 mg every morning and 5 mg every afternoon. once patient po - TSH markedly elevated, T4 borderline low, concerning for subclinical hypothyroidism #. Migraine headaches, not present on admission. Stable. - Continue gabapentin 600 mg twice a day. once patient po PRN antiemetics: Zofran and Maalox. PRN bowel regimen: Senna and MiraLAX. PRN analgesics: Tylenol. Patient is admitted under inpatient status with expected length of stay greater than 2 midnights due to severity of presenting symptoms, risk of adverse event, and complexity of treatment plan. . VTE Prophylaxis: Theraputic Anticoag with Warfarin VTE Mechanical Devices: Intermittant Pneumatic CD Resuscitation Status: CPR: Attempt Resuscitation Time spent 35 mins Judah Montiel MD Nov 09, 2016 09:21 Judah Montiel MD Nov 09, 2016 09:21
--- NOTE | 2016-11-09 10:48 | DRSVH ---
PROCEDURE: US ABDOMEN, LIMITED ([id number]) INDICATIONS: Elevated LFTs TECHNIQUE: Real-time focused scanning was performed of the abdomen, with image documentation. COMPARISON: [facility], CT, CT ABD PELVIS W CON, 07/22/2016, 9:45. [facility], CT, ABDOMEN/PELVIS WITH CONTRAST, 10/14/2016, 20:50. [facility], CT, CT ABD PELVIS W CON, 10/21, 16:30. FINDINGS: The liver demonstrates normal size. The liver demonstrates generalized increased echogenic ity. This decreases ultrasound sensitivity for detection of hepatic masses. This patient is status post cholecystectomy. The common bile duct is mildly dilated, measuring 16-17 mm. IMPRESSION: Continued biliary dilatation, a which is decreased over time. Status post cholecystectomy. The liver demonstrates increased echogenicity. This finding is nonspecific, yet it is most commonly attributed to fatty infiltration. Dictated by: Sang Le M.D. on 11/09/2016 at 10:44 Approved by: Sang Le M.D. on 11/09/2016 at 10:46
[2016-11-09] MEDS: HYDROmorphone 1 mg/mL Inj IVPUSH PRN ×2 (12:45→17:33)
--- NOTE | 2016-11-09 15:18 | CONS ---
[address] [address] CONSULTATION REPORT PATIENT: SAMAN TORRES : 1975 MR#: [id number] ADMIT: 11/08/2016 JOB ID: [id number] DATE OF SERVICE: 11/09/2016 PHYSICIAN REQUESTING CONSULTATION: Judah Montiel MD REASON FOR CONSULTATION: Abnormal liver function tests and abdominal pain. HISTORY OF PRESENTING ILLNESS: The patient is a 41-year-old woman whose past medical history is significant for a gastric bypass that was done in [place]. This surgery she reports she had done with a duodenal switch. Her history is also significant for a recent diagnosis of mesenteric venous thrombosis for which she was started on warfarin recently. She also has a history of splenic thromboembolism; this was following her duodenal switch surgery approximately 10 years ago. She presents to the emergency department with complaints of mid abdominal pain since yesterday afternoon around 12. She describes the pain as being a dull achy pain with intermittent episodes of exacerbation of the pain. She states that the pain is a pain that is not constant. She rates the pain as being an 8/10. She does report associated mild nausea. She has not had any vomiting, but has tried to induce vomiting as she states that this makes it feel better. She does report that the pain radiates into the right flank area. She reports having had similar episodes of pain over the last 10 years. However, she states on this admission the pain is the most severe that it has been. She does also report some small volume diarrhea yesterday morning, but none since. Prior to this episode of pain she states that she was having normal bowel movements and otherwise felt well. During our exam the patient was mildly sedated and it was difficult for her to stay awake to answer questions. The remainder of the history is obtained from the chart. PAST MEDICAL HISTORY: Significant for hydrocephalus, splenic infarct, depression, anxiety, ADD, hyperthyroidism, mesenteric venous thrombosis, insomnia, gastroesophageal reflux, and migraine headaches. PAST SURGICAL HISTORY: Includes duodenal switch, cholecystectomy, temporary shunt and skull flap for hydrocephalus, and strangulated hernia repair. FAMILY HISTORY: Significant for hypothyroidism and type 2 diabetes. SOCIAL HISTORY: She does drink alcohol socially, but not but not daily. She does use THC. She smokes approximately one pack per day and has done so for the last 10 years. REVIEW OF SYSTEMS: I was unable to obtain a 10-point review of systems secondary to her somnolence. MEDICATIONS: Home medications include acetazolamide, amphetamine, fluoxetine, gabapentin, methimazole, multivitamin, omeprazole as needed, potassium, vitamin D3, warfarin, and zolpidem. Hospital medications include famotidine 20 mg IV q.12, Dilaudid 0.5 mg q.4 p.r.n., fluoxetine 20 mg p.o. t.i.d., Adderall 5 mg b.i.d., gabapentin 600 mg b.i.d., pantoprazole 40 mg p.o. daily, Ambien 10 mg p.r.n., warfarin, Maalox p.r.n., Zofran p.r.n., Senokot p.r.n., MiraLAX powder p.r.n., Tylenol p.r.n. ALLERGIES: HEPARIN. PHYSICAL EXAMINATION: Her temperature is 36.4, her pulse is 65, her blood pressure is 121/79, respiratory rate is 22, O2 saturation is 98% on room air. Generally she is a young woman in no apparent distress, who is arousable but appears somnolent. Appears to be in no distress. HEENT: No pallor. No icterus. Oropharynx is clear. Chest: Clear to auscultation bilaterally. Cardiovascular: S1 and S2 heard. Abdomen: Soft, nondistended. She is tender in the epigastric area and the right upper quadrant. I do not appreciate any rebound or guarding. Bowel sounds are present. Extremities: Without edema. LABORATORY DATA: Shows the following: From yesterday a white blood cell count of 8.3, hemoglobin of 10.3, hematocrit of 31.8, MCV of 90.3, platelet count of 273. Her PT today is 47.7, INR is 4.33. Her chemistries from yesterday evening show a total bili of 0.7, AST of 415, ALT of 107, alkaline phosphatase of 280. Total protein of 6 and albumin of 3.2. Her TSH is 9.120. Her lactic acid is 0.6. Her BNP is normal. Current urinalysis shows 0-2 RBCs, 0-5 WBCs, but otherwise normal. Hepatitis B and C serologies are ordered and are pending. CT of the abdomen that was done yesterday shows small-bowel obstruction possibly related to small-bowel intussusception in the left upper quadrant. A small amount of free fluid in the lower pelvis. No free air identified. Status post gastric bypass and cholecystectomy. Intrahepatic and extrahepatic biliary dilation were noted but improved compared to CT from July 22, 2016. She also had an ultrasound of the abdomen done which shows biliary dilation and the liver appeared increased echogenic. ASSESSMENT AND PLAN: 1. A 41-year-old woman with a history of gastric bypass duodenal switch presenting with acute on chronic abdominal pain with what appears to be possible intussusception on CT scan. Additionally she does have acutely elevated liver function tests since hospitalization. Upon my brief discussion with her, she states that she has had a history of acute elevations of liver function tests during hospitalizations, most recently when she was at [facility] back in July. Recommend obtaining records from [facility] to review her LFTs. Additionally with the biliary dilation present would recommend obtaining an MRCP to further evaluate the biliary tree. Would continue to follow LFTs closely and avoid any nonessential medications. If her abdominal pain does not continue to improve, would recommend repeat cross-sectional imaging to see if small-bowel obstruction has resolved. In the meantime, would continue IV hydration, follow I's and O's, and monitor electrolytes. 2. Normocytic anemia. Recommend checking vitamin B12, folate, and iron studies. No evidence of active gastrointestinal bleeding. Thank you for allowing me to take part in this patient's care. If you have any further questions, please do not hesitate to contact me.
--- NOTE | 2016-11-09 17:10 | NUR ---
Pain/Nausea- Complained of abdominal pain that is sharp and cramping and causes the patient to writhe in pain. IV Dilaudid given per order. Patient also complaining of nausea that causes her to wretch small amt. of emesis. Meds alleviate symptoms for a short while, and patient able to rest.
--- NOTE | 2016-11-09 17:10 | NUR ---
Social Work- Screening/Multidisciplinary Rounds Data: EMR reviewed. Pt is a 41 year old female admitted Lauren for SBO. Pt's insurance is [employer]. Pt's PCP is not listed at this time. Pt's readmit risk score is not entered at this time. Pt's NOK contact is Celia Coates, mother, . Pt discussed in multidisciplinary rounds, pt to receive consult from GI. Surgery is following. No SW orders have been placed at this time. SW attempted to see pt today to discuss d/c planning. Pt was extremely ill and was up to the bathroom many times while GAS FITTER was in the room writing on the whiteboard. SW to follow up with pt when she is more appropriate for discussion and her symptoms are improved. Pt has been independent to the BR during this admission. SW will continue to follow. Assessment: Pt who is likely independent with ADLs and self-care Plan: SW to follow up with pt when more appropriate as pt was too ill during assessment attempt. No SW needs anticipated but GAS FITTER will continue to follow. RAYNA Mccloud
[2016-11-09] MEDS ORDERED: HYDROmorphone 1 mg/mL Inj IVPUSH ONE (18:25)
[2016-11-09] MEDS ORDERED: LORazepam 1 mg Tablet PO ONE (18:52)
[2016-11-09] MEDS ORDERED: HYDROmorphone 1 mg/mL Inj IVPUSH PRN (18:55)
[2016-11-09 19:05] LABS: BASOPHILS % (AUTO) 0.2 % (0-3); EOSINOPHILS % (AUTO) 0 % (0-5); MONOCYTES % (AUTO) 6.7 % (4-12); Mean Corpuscular Hemoglobin 29.3 pg (27.0-35.0); Mean Corpuscular Volume 90.4 fL (81-100); NEUTROPHILS % (AUTO) 87.1 % (40-74); Platelet Count 298 bil/L (150-400)
[2016-11-09 19:23] LABS: D-Dimer 0.78 mg/L FEU (<0.50)
--- NOTE | 2016-11-09 19:36 | PCM.DC.MED ---
Discharge Summary Date of Service Nov 09, 2016 Dates of Hospitalization Date of Hospital Admission Nov 08, 2016 at 18:02 Date of Discharge: Nov 09, 2016 Providers: Admitting Physician: Anna Rincon DO Primary Care Physician: Luz Attending Physician: Judah Montiel MD Procedures XRay, CTs & MRIs CT ABDOMEN AND PELVIS WITH CONTRAST niya disc disease and facet arthropathy. IMPRESSION: 1. Small bowel obstruction possibly related to small bowel intussusception in the left upper quadrant of the abdomen. 2. Small amount of free fluid in lower pelvis. No free air identified. 3. Status post gastric bypass and cholecystectomy. 4. Intrahepatic and extrahepatic biliary dilatation as diminished in interval since prior exam obtained 07/22/16 and is likely related to prior cholecystectomy. Please correlate with laboratory data. 5. Findings discussed with Dr. Neal Apodaca on 11/08/2016 at 1659 hrs. Dictated by: Mary Mai MD, PhD on 11/08/2016 at 15:54 . Other Diagnostics Abd US IMPRESSION: Continued biliary dilatation, a which is decreased over time. Status post cholecystectomy. The liver demonstrates increased echogenicity. This finding is nonspecific, yet it is most commonly attributed to fatty infiltration. Brief History Padmini Coates is a 41-year-old female with a past medical history significant for hydrocephalus status post temporary shunt and skull flap, depression, anxiety, ADD, hyperthyroidism,weight loss surgery in [place] called a "duodenal switch", incarcerated hernia, and recent mesenteric venous thrombosis on warfarin who presented to [facility] emergency Department with mid abdominal pain since 12:00 this afternoon. She describes the pain a dull ache with intermittent sharpness. The abdominal pain is intermittent and comes in waves. She rates the pain a +8 out of 10 in severity at its worst. She has had associated nausea, right back pain, and headache. She reports that if she tries to make herself vomit she gets mild relief despite not actually vomiting. She denies chest pain, sore throat, cough, fever , chills, dysuria, or constipation. She reports she had a small episode of diarrhea this morning. She reports that she normally has a bowel movement daily. She denies hematochezia or melena. Vital signs in the ER: Temperature 36.7. Pulse 77. Respiratory rate 16. Blood pressure 130/84. Pulse ox 100% room air. She received hydromorphone IV 0.5 mg 2, famotidine IV 20 mg 1, calcium carbonate 500 mg 1, acetaminophen 975 mg 1, and 1 L of NS. PCP is Fatemeh Gutierrez PA-C. . Hospital Course Padmini Coates is a 41-year-old female with a past medical history significant for hydrocephalus status post temporary shunt and skull flap, depression, anxiety, ADD, hyperthyroidism,weight loss surgery in [place] called a "duodenal switch", incarcerated hernia, and recent mesenteric venous thrombosis on warfarin who presented to [facility] emergency Department with mid abdominal pain since 12:00 this afternoon. #. Acute small bowel obstruction with intussusception , present on admission. Active. - Patient presented with mid abdominal pain, nausea, right-sided back pain, and diarrhea. - Patient has a history of several abdominal surgeries including cholecystectomy , stringy related hernia repair, and duodenal switch which puts the patient at high risk for adhesions and small bowel obstruction. - CT abdomen and pelvis with contrast demonstrated small bowel obstruction possibly related to small bowel intussusception in the left upper quadrant of the abdomen, as above. - hydromorphone 0.5 mg every 2 hours as needed for severe pain - Dr. Parsons of general surgery was consulted recs: nothing by mouth, IV fluid hydration, and ambulation. Conservative management and evaluation of elevated liver enzymes # Elevated LFTs - etiology uknonw at this point - h/o cholecystectomy - CT abd as noted above, intra and extra hepatic dilation -Abd US as noted above, LFTS elevated significantly in last 24 hours upto 1700 AST - patient on methimazole at home, will hold due to hepatotoxicity - MRCP ordered, transfer to a tertiary care center for ERCP Chronic problems: #. Mesenteric venous thrombosis, present on admission. Presumed stable. - INR 2.51 therapeutic on warfarin. Trended up today - Continue warfarin with dosing per pharmacist. If surgery is required will need to reverse with FFP and vitamin K. #. Ductal stenosis with hydrocephalus status post temporary shunt and skull flap, present on admission. Stable. - Continue acetazolamide 250 mg twice daily once patient po #. Depression and anxiety, present on admission. Stable. - Continue fluoxetine 10 mg 3 times a day once patient po #. Attention deficit disorder, present on admission. Stable. - Continue amphetamine sulfate 5 mg twice daily once patient po #. Hyperthyroidism, present on admission. Stable. - Continue methimazole 10 mg every morning and 5 mg every afternoon. once patient po - TSH markedly elevated, T4 borderline low, concerning for subclinical hypothyroidism #. Migraine headaches, not present on admission. Stable. - Continue gabapentin 600 mg twice a day. once patient po PRN antiemetics: Zofran and Maalox. PRN bowel regimen: Senna and MiraLAX. PRN analgesics: Tylenol. Patient is admitted under inpatient status with expected length of stay greater than 2 midnights due to severity of presenting symptoms, risk of adverse event, and complexity of treatment plan. . Exam Vital Signs (Last) Date Time Temp Pulse Resp B/P Pulse Ox O2 Delivery O2 Flow Rate FiO2 11/09/16 14:00 36.8 66 20 132/70 99 Room Air Test 11/08/16 14:40 11/08/16 15:05 11/08/16 22:54 11/09/16 06:02 Hemoglobin A1c 5.3% (4.8-5.6) Lipase 12U/L (13-60) Hold Pineda Top Tube Received (Received) Urine Color Straw (YELLOW) Urine Appearance Hazy (CLEAR,HAZY) Urine pH 8.0 (5.0-8.0) Urine Specific [place] 1.010 (1.003-1.035) Urine Protein Negativemg/dL (NEG,TRACE) Urine Glucose (UA) Negativemg/dL (NEGATIVE) Urine Ketones Negativemg/dL (NEGATIVE) Urine Occult Blood Negative (NEGATIVE) Urine Nitrite Negative (NEGATIVE) Urine Bilirubin Negative (NEGATIVE) Urine Urobilinogen Normalmg/dL (NORMAL) Urine Leukocyte Esterase Negative (NEGATIVE) Urine RBC 0-2/hpf (0-2) Urine WBC 0-5/hpf (0-5) Urine Epithelial Cells Occasional/hpf (NONE-MOD) Urine Crystals None seen (NONE SEEN) Urine Bacteria None/hpf (NONE-FEW) Urine Hyaline Casts None/lpf (NONE) Urine Granular Casts None seen (NONE SEEN) Urine Waxy Casts None seen (NONE SEEN) Urine Red Blood Cell Casts None seen (NONE SEEN) Urine White Blood Cell Casts None seen (NONE SEEN) Urine Mucus None seen (None Seen) Urine Trichomonas None seen (NONE SEEN) Urine Yeast None (NONE SEEN) Urinalysis Comment None Urine Culture Reflexed Not indicated Lactic Acid Level 0.6mmol/L (0.4-2.0) Prothrombin Time 47.7sec (8.1-12.5) Prothromb Time International Ratio 4.33ratio Thyroid Stimulating Hormone (TSH) 9.120uIU/mL (0.450-4.500) Free Thyroxine 1.27ng/dL (0.82-1.77) Hepatitis C Comment . Test 11/09/16 14:25 11/09/16 18:59 Sodium Level 139mEq/L (134-144) Potassium Level 4.7mEq/L (3.5-5.2) Chloride Level 104mEq/L (97-108) Carbon Dioxide Level 20mmol/L (18-29) Blood Urea Nitrogen 6mg/dL (6-24) Creatinine 0.52mg/dL (0.57-1.00) Estimat Glomerular Filtration Rate 187mL/min (>59) Glucose Level 91mg/dL (60-99) Calcium Level 8.3mg/dL (8.5-10.1) Total Bilirubin 0.9mg/dL (0.0-1.2) Aspartate Amino Transf (AST/SGOT) 1718U/L (0-50) Alanine Aminotransferase (ALT/SGPT) 449U/L (0-32) Alkaline Phosphatase 510U/L (25-150) Total Protein 6.9g/dL (6.4-8.4) Albumin 3.4g/dL (3.4-5.0) White Blood Count 5.0th/mm3 (3.8-10.1) Red Blood Count 4.16mil/mm3 (3.90-5.20) Hemoglobin 12.2g/dL (12.0-15.6) Hematocrit 37.6% (35.0-46.0) Mean Corpuscular Volume 90.4fL (81-100) Mean Corpuscular Hemoglobin 29.3pg (27.0-35.0) Mean Corpuscular Hemoglobin Concent 32.4% (32.0-37.0) Red Cell Distribution Width 14.3% (12.3-15.4) Platelet Count 298bil/L (150-400) Neutrophils (%) (Auto) 87.1% (40-74) Lymphocytes (%) (Auto) 5.8% (14-46) Monocytes (%) (Auto) 6.7% (4-12) Eosinophils (%) (Auto) 0% (0-5) Basophils (%) (Auto) 0.2% (0-3) Fibrinogen 396mg/dL (157-380) D-Dimer 0.78mg/L FEU (<0.50) Discharge Medications Discharge Medications Amphetamine Sulfate (Evekeo) 5 Mg Tablet 5 MG PO TID (Reported) Cholecalciferol (Vitamin D3) (Vitamin D) 1,000 Unit Tablet 0 PO DAILY (Reported ) Fluoxetine (Fluoxetine) 10 Mg Tablet 10 MG PO TID (Reported) Gabapentin (Gabapentin) 600 Mg Tablet 1,200 MG PO DAILY (Reported) Multivitamin (Multi Vitamin Daily) 1 Each Tablet 1 EACH PO DAILY (Reported) Omeprazole (Omeprazole) 20 Mg Tablet.dr 20 MG PO DAILY Prescribed by: JORGE LUIS SCOTT MD Potassium (Potassium) 99 Mg Tablet 99 MG PO DAILY (Reported) Warfarin Sodium (Coumadin) 5 Mg Tablet 5 MG PO DAILY (Reported) As needed Ondansetron ODT (Zofran ODT) 8 Mg Tablet 8 MG PO Q12 HR PRN PRN For Nausea ( Reported) Miscellaneous Medications Magnesium Amino Acid Chelate (Magnesium) 27 Mg Tablet 0 PO (Reported) Methimazole (Methimazole) 10 Mg Tablet (Reported) Zolpidem (Zolpidem) 10 Mg Tablet (Reported) Judah Montiel MD Nov 09, 2016 19:36
--- NOTE | 2016-11-09 19:37 | PCM.DIMED ---
Discharge Instructions Date of Service Nov 09, 2016 Dates of Hospitalization Nov 08, 2016 at 18:02 Discharge Diagnosis Discharge Diagnosis Acute hepatitis with biliary duct dilation Patient Instructions Additional Information Transfer to Judah Douglas MD Nov 09, 2016 19:37
[2016-11-09] MEDS ORDERED: Famotidine Inj 20 MG in IV Premix 1 EACH IV SCH (20:30)
--- NOTE | 2016-11-10 01:41 | NUR ---
RF/Transfer Pt received 1mg stat IV Ativan @ 190 from day RN for scheduled MRCP. Per MRI staff, pt unable to stay still or follow directions due to pain/anxiety, pt observed left side lying in bed, position, grimacing and clutching abdomen. Post Ativan, pt is responsive, very drowsy, calm. VS taken: BP 116/77 P 105 R 17 T 37.2 RA SAO2 92%. Pt off floor @ ~1999 for MRI. RN admin'd off unit @ ~ 2022 0.5mg IV Dilaudid. Last dose IV Dilaudid @ 1832. RN helped pt to BR, pt A/Ox3, asked "Can you turn the water on to help." steady on feet, ambulates ind crouched over holding abdomen. Per pt, pain to RUQ that radiates to right lower back. Pt returned to [facility] unit @ ~ 2054, MRI "unsuccessful" per MRI staff. Nurse inspection supervisor informed that MRI unsuccessful from RN. Per ASSISTANT OCEANOGRAPHER, was informed by MRI staff in [facility] that pt non-responsive. ASSISTANT OCEANOGRAPHER rushed to pt room, found pt to be blue in the face, immediately contacted RN and national sales director. 7L NC applied, 0.4mg Narcan admin'd by national sales director @ 2105. SAO2 85%, switched pt to non rebreather @ 10L. Continued to monitor pt status & VS for 30'. Last VS @ 2129: BP 121/87 P 94 R 21 SAO2 on 10L non rebreather 94%. Pt A/Ox3, drowsy, answering questions appropriately, some dry heaving observed, no emesis. Informed pt to remove non rebreather if she needs to vomit. Pt c/o pain to RUQ/back. BLS transferred pt on O2 non rebreather, with all belongings @ 2129. Pt to transfer to [facility] for ERCP that [facility] unable to perform on this pt. Daughter, Iesha, called and aware of transfer. Pt aware of transfer and thanked staff for our care while being wheeled out of room. Called report to Aida at [facility].
[2016-11-10 02:08] LABS: Hepatitis A Antibody IgM Negative (Negative); Hepatitis B Core Antibody IgM Negative (Negative)
== END 2016-11-09 21:30 | disposition short-term general hospital (02) ==
LOC: SED 13:55 → OBSVTOIN 18:02 → INTOOBSV 18:02 → OSC 18:02
PROVIDERS: ADMIT Internal Medicine; ATTEND Internal Medicine
DX: K56.60 Unspecified intestinal obstruction (principal); K56.1 Intussusception; I81 Portal vein thrombosis; Z90.49 Acquired absence of other specified parts of digestive tract; Z90.3 Acquired absence of stomach [part of]; E03.9 Hypothyroidism, unspecified; Z79.01 Long term (current) use of anticoagulants; F32.9 Major depressive disorder, single episode, unspecified; F17.210 Nicotine dependence, cigarettes, uncomplicated; F12.90 Cannabis use, unspecified, uncomplicated; Z98.84 Bariatric surgery status; F41.9 Anxiety disorder, unspecified; F98.8 Other specified behavioral and emotional disorders with onset usually occurring in childhood and adolescence; G43.909 Migraine, unspecified, not intractable, without status migrainosus; D64.9 Anemia, unspecified; R74.0 Nonspecific elevation of levels of transaminase and lactic acid dehydrogenase [LDH]
CPT/HCPCS: 36415; 74177; 76705; 80053; 81000; 81025; 83036; 83605; 83690; 84439; 84443; 85025; 85378; 85384; 85610; 86705; 86709; 87340; 87341; 96361; 96374; 96375; 96376; 99285; G0472; J1170; J2060; J2310; J2405; J3480; J3490; J7030; Q9967